=== PATIENT | male | born 1995 | race Caucasian/White ===

== ENCOUNTER → 2017-09-29 10:08 | Outpatient (CLI) | payer OTHER, MEDICAID, SELFPAY ==
[2017-09-29 10:29] LABS: Absolute Lymphocyte Count 1.92 X10^3/ul (0.83-4.51); Absolute Neutrophil Count 4.4 X10^3/uL (2.0-7.7); Basophil# 0.03 X10^3/uL; Basophil% 0.4 % (0-1); Eosinophil# 0.09 X10^3/uL; Eosinophils% 1.3 % (0-5); Hematocrit 45.5 % (40-54); Hemoglobin 15.2 g/dl (13.0-16.5); Lymphocyte # 1.92 X10^3/ul (4.0); Lymphocyte % 26.9 % (19-41); Mean Corp Hgb Conc 33.4 g/gl (32-36); Mean Corpuscular Hgb 30.3 pg (27.0-32.0); Mean Corpuscular Volume 90.8 fL (80-94); Monocyte# 0.71 X10^3/uL; Monocyte% 9.9 % (0-10); Neutrophil # 4.38 X10^3/uL (2.7-7.7); Neutrophil % 61.4 % (47-70); Platelet Count 279 K/mm3 (150-450); RBC Distribution Width CV 12.5 % (11.6-14.6); RBC Distribution Width SD 41.2 fl (35.1-43.9); Red Blood Count 5.01 M/mm3 (4.6-6.2); White Blood Count 7.1 K/mm3 (4.4-11.0)
[2017-09-29 10:31] LABS: POSITIVE COUNT NO; POSITIVE DIFFERENTIAL NO; POSITIVE MORPHOLOGY NO
[2017-09-29 11:03] LABS: ALB/GLOB Ratio 1.2 RATIO (0.9-2.4); AST(SGOT) 21 U/L (15-37); Alanine Aminotransfer ALT/SGPT 44 U/L (16-61); Albumin, Serum 4.3 g/dL (3.2-5.0); Alkaline Phosphatase 59 U/L (45-117); Anion Gap 7 (5-15); BUN 20 mg/dL (7-18); BUN/Creat Ratio 22.4 RATIO (10-20); Calcium,Total 9.1 mg/dL (8.5-10.1); Chloride 106 mmol/L (98-107); Cholesterol 205 mg/dL (200); Creatinine, Serum 0.89 mg/dL (0.70-1.30); EST Glomerular Filtration Rate 114 mL/min (>60); Est Glom Filt Rate - Afr Amer 138 mL/min (>60); Globulin 3.5 g/dL (2.2-4.2); Glucose 89 mg/dL (74-106); High Density Lipoprotein 46 mg/dL; Potassium 4.7 mmol/L (3.5-5.1); Protein, Total 7.8 g/dL (6.4-8.2); Sodium Level 141 mmol/L (136-145); Triglycerides 159 mg/dL; Very Low Density Lipoprotein 32 mg/dL (5-40)
== END ==
PROVIDERS: Family Provider Internal Medicine; PCP Internal Medicine; Visit Provider Internal Medicine
DX: E78.00 Pure hypercholesterolemia, unspecified (principal); R53.82 Chronic fatigue, unspecified
CPT/HCPCS: 36415; 80053; 80061; 85025

== ENCOUNTER 2017-10-12 14:53 | Emergency (ER) | payer OTHER, MEDICAID, SELFPAY ==
[2017-10-12 14:54] VITALS: BP 158/101; PULSE 118; RESP 24; TEMP 37.3; O2SAT 100; BMI 29.8
[2017-10-12 15:03] VITALS: BP 148/98; PULSE 144; RESP 13
--- NOTE | 2017-10-12 15:11 | RAD_ITS ---
STUDY: X-RAY CHEST REASON FOR EXAM: Male, 22 years old. Nausea, vomiting and diarrhea. Chest pain. Fever. Cold like symptoms. TECHNIQUE: PA and lateral views of the chest. COMPARISON: None. FINDINGS: Telemetry wires overlie the chest. The lungs are clear and expanded. There is no demonstrated pleural abnormality. Normal size heart. Normal mediastinum and jamar. Normal visualized pulmonary arteries. Normal visualized aortic arch and descending thoracic aorta. Normal visualized thoracic spine. Normal visualized ribs, clavicles, and shoulders. There is no demonstrated abnormality of the visualized soft tissue structures of the upper abdomen. RAD/Chest PA and Lateral IMPRESSION: Normal x-ray examination of the chest. Electronically Signed: Andrea Wyman DO at 16:14 EDT Tel [phone], Service support ,
[2017-10-12] MEDS: 0.9% Normal Saline 1,000 ML 1000 ML IV (15:20)
[2017-10-12 15:42] LABS: Absolute Lymphocyte Count 1.29 X10^3/ul (0.83-4.51); Absolute Neutrophil Count 6.8 X10^3/uL (2.0-7.7); Basophil# 0.02 X10^3/uL; Basophil% 0.2 % (0-1); Eosinophil# 0.05 X10^3/uL; Eosinophils% 0.6 % (0-5); Hematocrit 45.6 % (40-54); Hemoglobin 15.2 g/dl (13.0-16.5); Lymphocyte # 1.29 X10^3/ul (4.0); Lymphocyte % 14.4 % (19-41); Mean Corp Hgb Conc 33.3 g/gl (32-36); Mean Corpuscular Hgb 29.9 pg (27.0-32.0); Mean Corpuscular Volume 89.8 fL (80-94); Mean Platelet Vol. 9.9 fl (6.2-12.0); Monocyte# 0.78 X10^3/uL; Monocyte% 8.7 % (0-10); Neutrophil # 6.82 X10^3/uL (2.7-7.7); Neutrophil % 75.9 % (47-70); Platelet Count 266 K/mm3 (150-450); RBC Distribution Width CV 12.1 % (11.6-14.6); RBC Distribution Width SD 39.2 fl (35.1-43.9); Red Blood Count 5.08 M/mm3 (4.6-6.2)
[2017-10-12 15:44] LABS: POSITIVE COUNT NO; POSITIVE DIFFERENTIAL NO; POSITIVE MORPHOLOGY NO
--- NOTE | 2017-10-12 15:50 | EKG12_ITS ---
Test Reason : PALPS Blood Pressure : / mmHG Vent. Rate : 131 BPM Atrial Rate : 144 BPM P-R Int : 138 ms QRS Dur : 076 ms QT Int : 292 ms P-R-T Axes : 044 063 051 degrees QTc Int : 431 ms Sinus tachycardia Otherwise normal ECG Confirmed by INDIO DUARTE, SAVAGE ([id number]), general expeditor MYRON SWENSON ([id number]) on 10/14/2017 10:08:54 AM Referred By: KARLA/FELICE Confirmed By:SAVAGE BORJAS MD
[2017-10-12 15:55] LABS: Anion Gap 11 (5-15); BUN 11 mg/dL (7-18); BUN/Creat Ratio 11.6 RATIO (10-20); Calcium,Total 9.5 mg/dL (8.5-10.1); Chloride 103 mmol/L (98-107); Creatinine, Serum 0.95 mg/dL (0.70-1.30); EST Glomerular Filtration Rate 106 mL/min (>60); Est Glom Filt Rate - Afr Amer 129 mL/min (>60); Glucose 89 mg/dL (74-106); Potassium 3.9 mmol/L (3.5-5.1); Sodium Level 143 mmol/L (136-145)
--- NOTE | 2017-10-12 15:55 | NURSING ---
NO OLD EKGS
--- NOTE | 2017-10-12 16:26 | ED.DCSUM_ITS ---
- ER Visit Summary Date of Service: 10/12/17 Chief Complaint: Nausea, diarrhea, sore throat History of Present Illness: The patient is a 22 M who is had the above symptoms for the past 3 days. He states he is felt weak. He also comments of a sore throat. He felt sweaty and shaky yesterday. Is also had multiple episodes of diarrhea. Denies any abdominal pain. He states that he did not drink a lot of water over the past couple of days. Physical Examination: Vital signs reviewed. HEENT exam shows tonsillar swelling with exudates bilaterally. Heart is tachycardic and regular rhythm without murmurs. Lungs are clear to auscultation. Abdomen is soft and nontender. Extremities reveal no edema. Skin exam normal. Neurologic exam normal. Test Results: EKG is sinus rhythm with rate of 131. No ST changes. Labs are normal chest x-ray unremarkable Emergency Department Course and Treatment: Patient was given IV fluids and feels much better. His heart rate is down to about 100. He likely has strep pharyngitis. He will be treated with penicillin at home. He will follow-up with his PCP Treatment Plan: [] Disposition: Discharge Impression: Pharyngitis This note was generated with [employer] dictation software. It may contain incorrect words, spelling, and punctuation that were not noted in review of the chart prior to signing ED Disposition - Plan for ED Patient: Chief Complaint: General Illness Referrals: Hawa Vaughn MD [Primary Care Provider] -
--- NOTE | 2017-10-12 16:26 | ED.DEP ---
ED Disposition - Plan for ED Patient: Disposition: Home or Assisted Living Chief Complaint: General Illness Instructions: ED Strep Pharyngitis Poss Prescriptions: Penicillin V Potassium 500 mg PO BID #14 tab Referrals: Hawa Vaughn MD [Primary Care Provider] -
== END 2017-10-12 16:41 | disposition home or self-care (01) ==
PROVIDERS: Emergency Provider Emergency Medicine; Family Provider Internal Medicine; PCP Internal Medicine
DX: J02.9 Acute pharyngitis, unspecified (principal); R00.0 Tachycardia, unspecified; F41.9 Anxiety disorder, unspecified; F90.9 Attention-deficit hyperactivity disorder, unspecified type; M54.9 Dorsalgia, unspecified; G89.29 Other chronic pain; Z79.891 Long term (current) use of opiate analgesic; Z79.899 Other long term (current) drug therapy
CPT/HCPCS: 71046; 80048; 85025; 93005; 99284; J7030

== ENCOUNTER → 2017-10-21 11:04 | Outpatient (CLI) | payer OTHER, MEDICAID, SELFPAY | PROVIDERS: Family Provider Internal Medicine; PCP Internal Medicine; Visit Provider Otolaryngology | DX: H93.12 Tinnitus, left ear (principal) | CPT/HCPCS: 70553; A9585 ==

== ENCOUNTER 2018-02-02 13:00 | Outpatient (RCR) | payer OTHER, MEDICAID, SELFPAY ==
--- NOTE | 2017-11-17 09:35 | HP.PTEVAL_ITS ---
Patient's Visit Information HECTOR VELIZ is a 22 year old M referred to Physical Therapy by Hawa Vaughn MD with a diagnosis of LBP L sciatica. Date of Evaluation: 11/17/17 Physical Therapist: Les Rowell PT, - Visit Plan Frequency: 1-2x /Week Duration: 2 Weeks Plan: Postural edu, REIL, core stab ex's, LE stretching, bike, and HEP - Subjective Subjective: Pt reports he has had R anterior thigh pain for 2 1/2 years. Pt reports he has had PT 8 times already with no relief. Pt reports the pain is worst when he sits awkardly in a chair for a while. The pain is described as sharp and jabbing. Pt reports he had an MRI a year ago and reports they said it was coming from his L/S. Pt does note he has never had LBP. Pt reports icing, MH , stretching, and icy hot will sometimes help to alleviate his pain. When the pain is bad, he has to take meds, but he notes he doesnt like to do that because it messes with his cognitive function. No sleep difficulty secondary to pain. 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 0/10 at rest, 8/10 at worst ( getting out of his tub) - Pain L ant thigh pain Pain Intensity (Out of 10): 0 Pain Intensity Range: 8 - Objective Neuro: B LE sensation is WNL to light touch. B achilles reflex= 2/3. MMT: L hip flex and knee ext= 4+/5. All other L LE 5/5. R hip 5/5, R knee 4-/5 and painful secondary to a sprained knee which occurred 1 week ago. L/S ROM: Pt is minimally limited with L/S ext. All other movements are WNL. Repeated movements : RFIS 10x3 provokes L LE sx's near his L lat knee. Special tests: Pos 90/90 test and piriformus test - Goals Goal 1:: I with HEP in 2-3 visits Goal Time Frame: 2-4 Weeks - Rehabilitation Potential Physical Therapy Diagnosis: Pt has LBP, L sciatica, and limited L/S ROM secondary to L/S disc derangement. Rehabilitation Potential: Good - Anticipated Interventions Patient/Client Instruction: Educate patient on: Condition, Plan of Care For the Purpose of:: To improve self management Therapeutic Exercise to Include: Strength training, Postural training, Flexibilty training, Dynamic Lumbar Stabilization For the Purpose of:: To decrease pain, To increase ROM, To improve muscle performance and motor function Cryotherapy (ice pack, ice massage): Yes Thermo therapy (hot pack): Yes For the Purpose of:: To decrease pain Thank you for the opportunity to evaluate your patient. For Medicare and Medicare HMO plans, please review the plan of care and approve it. It will need to be FAXED BACK to us at [phone] for Medicare purposes. Please let me know if there are questions or concerns regarding this plan of care. Physician Signature: Date:
--- NOTE | 2018-02-02 13:58 | HP.PTDCSUM ---
HP - PT D/C Summary It has been my pleasure to treat HECTOR VELIZ under orders from Hawa Vaughn MD, for the diagnosis of LBP L sciatica for a total of 6 visit(s). Discharge Date: 02/02/18 Please see the following information for a summary of their discharge status. - Subjective Subjective: Doing good no pain ..exercises help pain go away. No symptonms for a week - Pain L ant thigh pain Pain Intensity (Out of 10): 0 - Overall Improvement % Improvement: 80 - Objective Objective/Function: POSTURE: slouched. GAIT: normal karel. LUMBAR ROM: flexion min/mod loss,extension min loss. FLEXABLITY: HAMS mod tight. -SLR - Goals Goal 1:: I with HEP in 2-3 visits Goal Progress: Goal Met - Plan Plan: D/C TO HEP - D/C Information Discharge Comments: HEP If there are questions or concerns regarding this patient's physical therapy, please feel free to call me at [phone]. Thank you for the referral of this patient. Sincerely, Bruce Pope, PT,
== END 2018-02-02 19:00 | disposition home or self-care (01) ==
LOC: PT 13:00
PROVIDERS: Family Provider Internal Medicine; PCP Internal Medicine; Visit Provider Internal Medicine
DX: M54.42 Lumbago with sciatica, left side (principal)
CPT/HCPCS: 97110; 97162; 97530

== ENCOUNTER 2018-02-26 16:01 | Emergency (ER) | payer OTHER, MEDICARE, MEDICAID, SELFPAY ==
[2018-02-16 11:19] VITALS: BMI 27.3
[2018-02-26 16:02] VITALS: BP 158/84; PULSE 107; RESP 18; TEMP 36.2; O2SAT 100; BMI 27.4
[2018-02-26 16:14] VITALS: PULSE 114; RESP 16; O2SAT 99
--- NOTE | 2018-02-26 16:16 | EKG12_ITS ---
Test Reason : CHEST PAIN Blood Pressure : / mmHG Vent. Rate : 126 BPM Atrial Rate : 126 BPM P-R Int : 162 ms QRS Dur : 080 ms QT Int : 314 ms P-R-T Axes : 070 078 058 degrees QTc Int : 454 ms Sinus tachycardia Otherwise normal ECG Confirmed by MERCEDES SHORT ([id number]), deputy editor in chief MYRON SWENSON ([id number]) on 03/01/2018 1:00:13 PM Referred By: KATEY Confirmed By:MERCEDES SHORT
--- NOTE | 2018-02-26 16:20 | RAD_ITS ---
STUDY: X-RAY CHEST REASON FOR EXAM: Male, 22 years old. Chest pains. TECHNIQUE: Single frontal view of the chest. COMPARISON: 10/12/2017. FINDINGS: The lungs are clear and expanded. There is no demonstrated pleural abnormality. Normal size heart. Normal mediastinum and jamar. Normal visualized pulmonary arteries. Normal visualized aortic arch and descending thoracic aorta. Normal visualized thoracic spine. Normal visualized ribs, clavicles, and shoulders. There is no demonstrated abnormality of the visualized soft tissue structures of the upper abdomen. RAD/Chest 1 View (Portable) IMPRESSION: Normal x-ray examination of the chest. Electronically Signed: Wilmar Moura MD at 16:52 EST , Service support ,
--- NOTE | 2018-02-26 16:21 | ED.DCSUM_ITS ---
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 He had mild shortness of breath and mild nausea. He tried to rest the pain has persisted. Past history significant for chronic back pain, anxiety, Tourette's, OCD, high cholesterol. He does have a history of tachycardia and states his normal heart rate is around 115. Physical Examination: Blood pressure is 158/84, temperature 97.1, heart rate 107, respiratory rate 18, pulse ox 100% on room air. Head neck examination unremarkable. Heart is tachycardic and regular. Lungs sounds are clear. Breath sounds are present bilaterally. There is mild chest wall tenderness just to the right of the sternum that re-creates his pain. Abdomen is soft and nontender. Peripheral pulses are noted and equal throughout. Test Results: EKG is sinus tach at 126 with no acute ischemia. Chest x-ray unremarkable. CBC and chemistry studies normal. Troponin negative. D-dimer 0.33. Emergency Department Course and Treatment: Patient was given morphine, Zofran, and IV fluids. On repeat evaluation he is significantly improved and denies pain at present time. Heart rate is 93. Test results are discussed with patient and family at bedside. He will continue to monitor his symptoms. Treatment Plan: [] Disposition: Discharge Impression: Atypical chest pain, resolved This note was generated with [employer] dictation software. It may contain incorrect words, spelling, and punctuation that were not noted in review of the chart prior to signing ED Disposition - Plan for ED Patient: Chief Complaint: Chest Pain Referrals: Hawa Vaughn MD [Primary Care Provider] -
[2018-02-26] MEDS: Ondansetron 4 MG/2 ML Vial IV (16:22)
[2018-02-26] MEDS: 0.9% Normal Saline 1,000 ML 150 ML IV (16:22)
[2018-02-26] MEDS: Morphine 4 MG/ML Syringe IV (16:23)
[2018-02-26 16:30] LABS: Absolute Lymphocyte Count 1.75 X10^3/ul (0.83-4.51); Basophil# 0.03 X10^3/uL; Basophil% 0.5 % (0-1); Eosinophil# 0.06 X10^3/uL; Eosinophils% 1.1 % (0-5); Hematocrit 44.4 % (40-54); Hemoglobin 15.4 g/dl (13.0-16.5); Lymphocyte # 1.75 X10^3/ul (4.0); Lymphocyte % 31.5 % (19-41); Mean Corp Hgb Conc 34.7 g/gl (32-36); Mean Corpuscular Hgb 30.5 pg (27.0-32.0); Mean Corpuscular Volume 87.9 fL (80-94); Mean Platelet Vol. 9.5 fl (6.2-12.0); Monocyte# 0.74 X10^3/uL; Monocyte% 13.3 % (0-10); Neutrophil # 2.98 X10^3/uL (2.7-7.7); Neutrophil % 53.6 % (47-70); Platelet Count 243 K/mm3 (150-450); RBC Distribution Width CV 12.1 % (11.6-14.6); RBC Distribution Width SD 38.6 fl (35.1-43.9); Red Blood Count 5.05 M/mm3 (4.6-6.2); White Blood Count 5.6 K/mm3 (4.4-11.0)
[2018-02-26 16:31] LABS: POSITIVE COUNT NO; POSITIVE DIFFERENTIAL NO; POSITIVE MORPHOLOGY NO
[2018-02-26 16:50] LABS: D-Dimer Quantitative (DVT/PE) 0.33 FEU/ug/m (0.27-0.49)
[2018-02-26 16:55] LABS: Anion Gap 11 (5-15); BUN 15 mg/dL (7-18); Calcium,Total 9.6 mg/dL (8.5-10.1); Chloride 101 mmol/L (98-107); EST Glomerular Filtration Rate 100 mL/min (>60); Est Glom Filt Rate - Afr Amer 121 mL/min (>60); Estimated Creatinine Clearance 124.45 ml/min; Glucose 73 mg/dL (74-106); Potassium 3.5 mmol/L (3.5-5.1); Sodium Level 138 mmol/L (136-145)
--- NOTE | 2018-02-26 17:21 | ED.DEP ---
ED Disposition - Plan for ED Patient: Disposition: Home or Assisted Living Chief Complaint: Chest Pain Instructions: ED Chest Pain Atypical Unkn Cause Referrals: Hawa Vaughn MD [Primary Care Provider] - As Needed
[2018-02-26 17:35] VITALS: BP 145/86; PULSE 89; RESP 16; O2SAT 96
== END 2018-02-26 17:36 | disposition home or self-care (01) ==
PROVIDERS: Emergency Provider Emergency Medicine; Family Provider Internal Medicine; PCP Internal Medicine
DX: R07.89 Other chest pain (principal)
CPT/HCPCS: 71045; 80048; 84484; 85025; 85379; 93005; 96361; 96374; 96375; 99284; J7030; A4216; J2405

== ENCOUNTER 2019-01-19 18:20 | Emergency (ER) | payer MEDICARE, MEDICAID, OTHER, SELFPAY ==
[2018-11-16 08:58] VITALS: BMI 28.8
[2019-01-19 18:21] VITALS: BP 145/78; PULSE 104; RESP 16; TEMP 37.4; O2SAT 99; BMI 29.5
[2019-01-19] MEDS: LORazepam 1 MG Tablet PO (20:10)
--- NOTE | 2019-01-19 20:30 | CM.ED ---
SOCIAL WORK INFORMANT: NURSING AND DR. MENDEZ REASON FOR REFERRAL: DEPRESSION/CHANGE IN MEDICATIONS CHIEF COMPLIANT: PATIENT REPORTS INCREASING DEPRESSION SINCE PSYCHIATRIST CHANGED MEDICATIONS. PATIENT DENIES ANY SUICIDAL IDEATION. LIVING ARRANGEMENTS: PATIENT REPORTS IS LIVING ON CAMPUS AT [facility]. SUPPORT/RESOURCES: PATIENT REPORTS LIMITED SUPPORT NO ONE UNDERSTANDS. 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 MENTAL HEALTH TREATMENT/HISTORY: PATIENT REPORTS HISTORY OF BIPOLAR DISORDER, OCD, ADHD, AND ANXIETY. PATIENT STATES FOLLOWS WITH PSYCHIATRY AND PREVI[facility]Y [facility]. PATIENT IS PRESCRIBED MEDICATION AND RECENTLY HAD A CHANGE IN MEDICATIONS AND WAS ADVISED NOT TO USE KRATOM AND CBD OIL BY PSYCHIATRIST D/T NOT KNOWING INTERACTIONS WITH PRESCRIBED MEDICATIONS. PATIENT STATES WAS BUYING KRATOM ON [employer]. SUBSTANCE ABUSE HX: PATIENT DENIES ANY HISTORY OF SUBSTANCE ABUSE. PATIENT STATES MY PSYCHIATRIST TOOK AWAY MY COPING SKILL OF DRINKING. PATIENT ADMITS ABOUT 2X A WEEK WOULD DRINK 1-8 BEERS. ASSESSMENT: MET WITH PATIENT IN ROOM. INTRODUCED ROLE AND REASON FOR REFERRAL. PATIENT STATES I JUST DON'T KNOW HOW TO COPE WITH THIS. PATIENT REPORTS IS HOPING NEW DOSING OF ADDERALL THAT HE IS TO START TOMORROW WILL HELP. PATIENT STATES TODAY WAS JUST BAD. PATIENT STATES WHEN HE WOULD TAKE KRATOM IT WOULD HELP WITH DEPRESSION WITHIN 15 MINUTES. PATIENT VOICES UNDERSTANDING OF WHY PSYCHIATRIST RECOMMENDED PATIENT TO STOP TAKING KRATOM. PATIENT WORRIED ABOUT RETURNING TO SCHOOL HE HAS MISSED A DAY OF CLASSES. EMOTIONAL SUPPORT AND ENCOURAGEMENT PROVIDED. DISCUSSED HEALTHY COPING SKILLS AND FOLLOW UP. PATIENT STATES WILL CALL THE CRISIS LINE IF NEEDED AND PLANS TO START COUNSELING SOON. PATIENT WAS GIVEN DOSE OF ATIVAN AND WILL HAVE TRANSPORT HOME BY HIS MOTHER. COLLABORATION WITH DR. MENDEZ. PATIENT PROVIDED WITH RESOURCES AND WILL RETURN HOME BEFORE. Jada AMEZQUITA, PAINT ROLLER COVERMAKER, SCHOOL CROSSING GUARD.
--- NOTE | 2019-01-19 21:00 | ED.DCSUM_ITS ---
- ER Visit Summary Date of Service: 01/19/19 Chief Complaint: [Depression] History of Present Illness: The patient is a 23 M [presents to the emergency department with history of longstanding depression and anxiety. Patient also has been diagnosed with bipolar disorder. Patient has history of ADHD as well as OCD. Patient states that he has had some medication adjustments made by his psychiatrist recently and he was started on lithium yesterday. Patient also supposed to increase his Adderall tomorrow. Today he felt very depressed and became tearful in class. He broke his pen and with a sharp edge of the pen tip started to abrade the back of his left hand. Patient is not having any thoughts of suicide. Patient states that in the past when he is felt this way he would take besl-abw-rcoaldk kratom which typically aborted his symptoms. Patient was told by his psychiatrist not to take this medication as she was unsure how it would interact with his lithium. Patient is not homicidal. He denies any auditory or visual hallucinations.] Physical Examination: HEENT-PERRLA, EOMI. Cranial nerves II through XII grossly intact. TMs clear. Mucous membranes moist. No adenopathy. Cardiovascular-regular rate and rhythm without murmur or ectopy Lungs-clear to auscultation, chest wall stable without crepitus or subcu emphysema Abdomen-normoactive bowel sounds, soft, nontender, no rebound or rigidity, no peritoneal signs. Extremities-intact ?4, normal range of motion, normal pulses, atraumatic [] Test Results: [None indicated] Emergency Department Course and Treatment: [Patient was given a dose of Ativan 1 mg p.o. and I had the social and political studies professor speak with the patient. At this point he is not suicidal and does not require inpatient admission. After treatment with the Ativan his symptoms essentially resolved and he is feeling back to his baseline.] Treatment Plan: [Patient has Xanax at home as needed for anxiety is to continue with that. Patient is to contact his psychiatrist for further instructions on his medications.] Disposition: [Discharged home in stable condition.] Impression: [Depression Anxiety] This note was generated with [employer] software. It may contain incorrect words, spelling, and punctuation that were not noted in review of the chart prior to signing ED Disposition - Plan for ED Patient: Referrals: Hawa Vaughn MD [Primary Care Provider] -
--- NOTE | 2019-01-19 21:03 | ED.DEP ---
ED Disposition - Plan for ED Patient: Instructions: Depression, Panic Attack Referrals: Hawa Vaughn MD [Primary Care Provider] - 3-5 Days Additional Instructions: see your psychiatrist in 3-5 days
[2019-01-19 21:10] VITALS: RESP 18
== END 2019-01-19 21:11 | disposition home or self-care (01) ==
LOC: ED 20:21
PROVIDERS: Emergency Provider Emergency Medicine; Family Provider Internal Medicine; PCP Internal Medicine
DX: F32.9 Major depressive disorder, single episode, unspecified (principal); F41.9 Anxiety disorder, unspecified; F90.9 Attention-deficit hyperactivity disorder, unspecified type; F42.9 Obsessive-compulsive disorder, unspecified; Z79.899 Other long term (current) drug therapy
CPT/HCPCS: 99283

== ENCOUNTER → 2019-01-21 | Outpatient (CLI) | payer MEDICARE, OTHER, MEDICAID, SELFPAY ==
[2019-01-19 18:21] VITALS: BMI 29.5
--- NOTE | 2019-01-21 12:28 | EKG12_ITS ---
Test Reason : MEDICATION Blood Pressure : / mmHG Vent. Rate : 094 BPM Atrial Rate : 094 BPM P-R Int : 164 ms QRS Dur : 080 ms QT Int : 330 ms P-R-T Axes : 056 072 045 degrees QTc Int : 412 ms Normal sinus rhythm with sinus arrhythmia Normal ECG Confirmed by PANTERA DUARTE, MODESTO ([id number]), editor in chief newspaper MYRON SWENSON ([id number]) on 01/25/2019 11:32:42 AM Referred By: Hawa Vaughn Confirmed By:MODESTO MOTT MD
[2019-01-21 13:51] LABS: Anion Gap 9 (5-15); BUN 16 mg/dL (7-18); BUN/Creat Ratio 18.1 RATIO (10-20); Calcium,Total 9.2 mg/dL (8.5-10.1); Chloride 105 mmol/L (98-107); Cholesterol 199 mg/dL (200); Creatinine, Serum 0.88 mg/dL (0.70-1.30); EST Glomerular Filtration Rate 114 mL/min (>60); Est Glom Filt Rate - Afr Amer 138 mL/min (>60); Glucose 101 mg/dL (74-106); High Density Lipoprotein 44 mg/dL; Sodium Level 141 mmol/L (136-145); T4 Free Direct 1.17 ng/dL (0.76-1.46); Thyroid Stim Hormone (TSH) 1.09 uIU/mL (0.358-3.74); Triglycerides 171 mg/dL; Very Low Density Lipoprotein 34 mg/dL (5-40)
== END | disposition home or self-care (01) ==
PROVIDERS: Family Provider Internal Medicine; PCP Internal Medicine; Referring Provider Internal Medicine; Visit Provider Internal Medicine
DX: I10 Essential (primary) hypertension (principal); R00.0 Tachycardia, unspecified; Z13.29 Encounter for screening for other suspected endocrine disorder; Z51.81 Encounter for therapeutic drug level monitoring
CPT/HCPCS: 80048; 80061; 84439; 84443; 93005

== ENCOUNTER 2019-02-02 18:54 | Emergency (ER) | payer MEDICARE, OTHER, MEDICAID, SELFPAY ==
[2019-02-02 18:56] VITALS: BP 157/84; PULSE 120; RESP 18; TEMP 37.3; O2SAT 99; BMI 29.2
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
[2019-02-02 19:44] VITALS: PULSE 99; RESP 18; O2SAT 99
--- NOTE | 2019-02-02 19:46 | ED.RN ---
THIS NURSE REVIEWED D/C INSTRUCTIONS WITH PT. PT VERBALIZED UNDERSTANDING OF INSTRUCTIONS. PT DENIES FURTHER NEEDS OR QUESTIONS AT THIS TIME.
== END 2019-02-02 19:46 | disposition home or self-care (01) ==
PROVIDERS: Emergency Provider Emergency Medicine; Family Provider Internal Medicine; PCP Internal Medicine
DX: M54.5 Low back pain (principal); G89.29 Other chronic pain; F41.9 Anxiety disorder, unspecified; F31.9 Bipolar disorder, unspecified; F90.9 Attention-deficit hyperactivity disorder, unspecified type; F42.9 Obsessive-compulsive disorder, unspecified; F95.2 Tourette's disorder; Z79.899 Other long term (current) drug therapy
CPT/HCPCS: 99282

== ENCOUNTER → 2019-02-10 16:41 | Outpatient (CLI) | payer MEDICARE, OTHER, MEDICAID, SELFPAY ==
[2019-02-04 10:17] VITALS: BMI 29.2
[2019-02-10 17:39] LABS: Absolute Lymphocyte Count 2.42 X10^3/uL (0.83-4.51); Absolute Neutrophil Count 4.8 X10^3/uL (2.0-7.7); Basophil# 0.04 X10^3/uL; Basophil% 0.5 % (0-1); Eosinophil# 0.09 X10^3/uL; Eosinophils% 1.2 % (0-5); Hematocrit 45.3 % (40-54); Hemoglobin 15.2 g/dL (13.0-16.5); Lymphocyte # 2.42 X10^3/ul (4.0); Mean Corp Hgb Conc 33.6 g/dL (32-36); Mean Corpuscular Hgb 30.4 pg (27.0-32.0); Mean Corpuscular Volume 90.6 fL (80-94); Mean Platelet Vol. 9.6 fl (6.2-12.0); Monocyte# 0.45 X10^3/uL; Monocyte% 5.8 % (0-10); NRBC Flagged by Analyzer 0 % (0-5); Neutrophil # 4.78 X10^3/uL (2.7-7.7); Neutrophil % 61.2 % (47-70); Platelet Count 338 K/mm3 (150-450); RBC Distribution Width CV 11.6 % (11.6-14.6); RBC Distribution Width SD 38.1 fl (35.1-43.9); White Blood Count 7.8 K/mm3 (4.4-11.0)
[2019-02-10 18:15] LABS: ALB/GLOB Ratio 1.4 RATIO (0.9-2.4); AST(SGOT) 22 U/L (15-37); Alanine Aminotransfer ALT/SGPT 42 U/L (16-61); Albumin, Serum 4.7 g/dL (3.2-5.0); Alkaline Phosphatase 61 U/L (45-117); Anion Gap 7 (5-15); BUN 17 mg/dL (7-18); Calcium,Total 9.3 mg/dL (8.5-10.1); Chloride 105 mmol/L (98-107); EST Glomerular Filtration Rate 99 mL/min (>60); Est Glom Filt Rate - Afr Amer 120 mL/min (>60); Globulin 3.3 g/dL (2.2-4.2); Glucose 102 mg/dL (74-106); Potassium 3.5 mmol/L (3.5-5.1); Sodium Level 141 mmol/L (136-145); Thyroid Stim Hormone (TSH) 2.04 uIU/mL (0.358-3.74)
== END ==
PROVIDERS: Family Provider Internal Medicine; PCP Internal Medicine
DX: Z51.81 Encounter for therapeutic drug level monitoring (principal); Z79.899 Other long term (current) drug therapy
CPT/HCPCS: 36415; 80053; 80178; 84443; 85025

== ENCOUNTER 2019-05-02 14:12 | Emergency (ER) | payer MEDICARE, OTHER, MEDICAID, SELFPAY ==
[2019-04-25 11:04] VITALS: BMI 29.2
[2019-05-02] VITALS (7 sets, daily range): BP systolic 143–152; BP diastolic 77–82; PULSE 93–116; RESP 16–18; TEMP 36.5; O2SAT 98–100; BMI 29.5
[2019-05-02 14:42] LABS: Absolute Lymphocyte Count 1.96 X10^3/uL (0.83-4.51); Absolute Neutrophil Count 5.6 X10^3/uL (2.0-7.7); Basophil# 0.04 X10^3/uL; Basophil% 0.5 % (0-1); Eosinophil# 0.09 X10^3/uL; Eosinophils% 1.1 % (0-5); Hematocrit 41.2 % (40-54); Hemoglobin 13.7 g/dL (13.0-16.5); Lymphocyte # 1.96 X10^3/ul (4.0); Lymphocyte % 23.7 % (19-41); Mean Corp Hgb Conc 33.3 g/dL (32-36); Mean Corpuscular Volume 90.4 fL (80-94); Mean Platelet Vol. 9.5 fl (6.2-12.0); Monocyte# 0.57 X10^3/uL; Monocyte% 6.9 % (0-10); NRBC Flagged by Analyzer 0 % (0-5); Neutrophil # 5.58 X10^3/uL (2.7-7.7); Neutrophil % 67.4 % (47-70); Platelet Count 298 K/mm3 (150-450); RBC Distribution Width CV 11.9 % (11.6-14.6); Red Blood Count 4.56 M/mm3 (4.6-6.2); White Blood Count 8.3 K/mm3 (4.4-11.0)
[2019-05-02 14:54] LABS: Anion Gap 6 (5-15); BUN 18 mg/dL (7-18); BUN/Creat Ratio 20.3 RATIO (10-20); Calcium,Total 9.2 mg/dL (8.5-10.1); Chloride 108 mmol/L (98-107); Creatinine, Serum 0.88 mg/dL (0.70-1.30); EST Glomerular Filtration Rate 114 mL/min (>60); Est Glom Filt Rate - Afr Amer 137 mL/min (>60); Estimated Creatinine Clearance 140.24 ml/min; Glucose 113 mg/dL (74-106); Sodium Level 141 mmol/L (136-145)
--- NOTE | 2019-05-02 15:07 | ED.RN ---
PT UNDER SUICIDAL PRECAUTIONS, SITTER WITH PT AT ALL TIMES. STATES HE IS CONCERNED HIS ANXIETY WILL ESCALATE UNTIL HE OVERDOSES ON MEDS, WHETHER ACCIDENTLY OR INTENTIONAL.
[2019-05-02 15:09] LABS: Alcohol, Blood (Medical)-Serum < 3.0 mg/dL
[2019-05-02 15:11] LABS: Amphetamine Urine VISTA POSITIVE (<1000 ng/mL); Barbiturate Urine VISTA NEGATIVE (< 200 ng/mL); Benzodiazepine Urine VISTA POSITIVE (< 200 ng/mL); Cocaine Urine VISTA NEGATIVE (< 300 ng/mL); Ecstacy Urine VISTA NEGATIVE (< 500 ng/mL); Methadone Urine VISTA NEGATIVE (< 300 ng/mL); PCP Urine VISTA NEGATIVE (< 25 ng/mL); THC Urine VISTA NEGATIVE (< 50 ng/mL); Vista UDS pH Range 7
--- NOTE | 2019-05-02 16:13 | ED.DCSUM_ITS ---
- ER Visit Summary Date of Service: 05/02/19 Chief Complaint: Depression and suicidal ideation History of Present Illness: The patient is a 23 M who presents with suicidal ideations that began yesterday. Patient states he got into an argument with his parents yesterday. Patient states he took some Kratom last night. Patient states he felt very anxious after this. Patient states he took some Ativan last night and was able to sleep. Patient states he woke up today feeling more anxious. Patient states he took more Ativan today. Patient states he also took more Kratom today. Patient states that he feels that if he was not brought in today he would have overdosed on his medications. Patient states he does not intend to overdose but he felt it may have led to an accidental overdose while he was trying to self medicate. Physical Examination: Vital signs are stable except for a tachycardia of 116. Patient is afebrile. Patient is in no acute distress. Oral mucosa is pink and moist. Neck is supple. Trachea is midline. There is no JVD noted. Heart was regular rate and rhythm. Lungs are clear and equal bilaterally. Abdomen is soft. Bowel sounds are normal. There is no tenderness. There is no rebound or guarding noted. Skin is warm dry. Cranial nerves II through XII are intact. There are no focal motor or sensory deficits noted. Extremities are intact. There is no calf tenderness or edema. Patient has an anxious mood and nervous affect. Patient denies any suicidal plan. Test Results: CBC and basic metabolic profile were within normal limits. Urine tox urine was positive for amphetamines and benzodiazepines. Serum alcohol level was normal. Mother requested a TSH be drawn. This was obtained and was normal at 1.03. [place] level was also obtained and was less than 0.20. Emergency Department Course and Treatment: welfare eligibility worker was in to evaluate the patient. She felt that the patient would benefit from inpatient treatment. Patient was pink slipped. Patient will be transferred to a psychiatric facility. Transfer arrangements were made. Patient understands and is agreeable with the plan. All questions were answered. Disposition: Transfer to psychiatric facility Impression: Acute clarisa This note was generated with [employer] dictation software. It may contain incorrect words, spelling, and punctuation that were not noted in review of the chart prior to signing ED Disposition - Plan for ED Patient: Disposition: Psychiatric Hospital or Unit Diagnosis: Clarisa Referrals: Hawa Vaughn MD [Primary Care Provider] -
[2019-05-02] MEDS: LORazepam 1 MG Tablet PO (16:54)
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
[2019-05-02 19:21] LABS: Lithium < 0.20 mmol/L (0.60-1.20)
[2019-05-02 19:23] LABS: Thyroid Stim Hormone (TSH) 1.03 uIU/mL (0.358-3.74)
--- NOTE | 2019-05-02 19:46 | CM.ED ---
Social Work Telephone call to [facility]. Confirming there are open beds. Clinical information faxed. Pending review. Yanick ARMIJO, BRITTNEY
[2019-05-02] MEDS: Meclizine HCl 25 MG Tablet PO (19:50)
--- NOTE | 2019-05-02 20:23 | ED.RN ---
patient took home dose of 20 mg addrell at this time. [facility] dose not carry medication
--- NOTE | 2019-05-02 21:07 | CM.ED ---
Social Work Telephone call from Jose Rafael Kamara. Patient has been accepted. Accepting: Hamida Oates N.P. Patient accepted to [address] [place] [address]. Nurse to nurse report: [phone]. Updated patient and patient family (patient agreeable to family being updated) and medical team. [place] slip faxed Yanick Keith MSW, BRITTNEY
== END 2019-05-02 21:38 ==
PROVIDERS: Emergency Provider Emergency Medicine; PCP Internal Medicine
DX: F30.9 Manic episode, unspecified (principal); F41.9 Anxiety disorder, unspecified; F90.9 Attention-deficit hyperactivity disorder, unspecified type; I10 Essential (primary) hypertension; Z79.899 Other long term (current) drug therapy
CPT/HCPCS: 80048; 80178; 80307; 80320; 84443; 85025; 99284; G0480

== ENCOUNTER 2019-05-10 07:41 | Emergency (ER) | payer MEDICARE, OTHER, MEDICAID, SELFPAY ==
[2019-05-02 14:14] VITALS: BMI 29.5
[2019-05-10 07:42] VITALS: BP 147/81; PULSE 124; RESP 16; TEMP 36.4; O2SAT 100; BMI 31.1
--- NOTE | 2019-05-10 08:00 | ED.DCSUM_ITS ---
History of Present Illness Chief Complaint: Nausea/Vomiting Detail of Chief Complaint: And generalized abdominal pain Informant: Patient Onset: Today Context: Sudden Onset Timing: Continuous, Waxes and wanes Quality: Pain and feeling sick to his stomach Location: Generalized Current Severity: Mild Maximum Severity: Moderate Worsened by: Vomiting Relieved by: Nothing Associated Symptoms: One formed bowel movement at onset Narrative: Patient is a 23-year-old college student who presents with abrupt onset of abdominal pain with nausea vomiting and one formed bowel movement at 0100. He reports she is vomited 3 times since onset of illness. He denies blood or mucus in stool. He denies black or maroon stool. He denies blood or coffee grounds in his emesis. There is no history of cyclic vomiting. There is no history of ill contacts. He did not eat any thing that tasted unusual. He does not have a roommate. He reports subjective fever. He denies chills. He complains of head discomfort vertex. He denies double vision, blurred vision loss of vision. Denies decreased hearing or ringing in his ears. Does complain of thirst and dry mouth. Denies sore throat. Denies cardiac respiratory symptoms. Nothing makes the pain better or worse. He denies myalgias arthralgias. He denies night sweats. He denies urinary symptoms. Prior similar symptoms: Yes - Food poisoning Recent Illness/Hospitalization: No - Past Medical History (1) Hypertension Status: Chronic (2) Hyperlipidemia Status: Chronic (3) Chronic low back pain with left-sided sciatica Status: Chronic (4) ADHD (attention deficit hyperactivity disorder) Status: Chronic (5) Tourette's Status: Chronic (6) OCD (obsessive compulsive disorder) Status: Chronic (7) Anxiety Status: Chronic Past Medical History - Allergies and Home Meds Allergies/Adverse Reactions: Allergies aripiprazole [From Abilify] Allergy (Severe, Verified 05/10/19 07:41) Loss of reality benztropine [From Cogentin] Allergy (Severe, Verified 05/10/19 07:41) unknown methylprednisolone Allergy (Verified 05/10/19 07:41) Other RESPIDON Allergy (Severe, Uncoded 05/10/19 07:41) Chest pain Primary Care Physician: Hawa Vaughn MD [Primary Care Provider] - Prior records reviewed: Yes Lives: With Family Smoking Status: Never smoker Alcohol: None Drugs: None Review of Systems General: Reports: Fever, Malaise, Subjective. Denies: Chills, Sweats, Weight loss Eyes: Denies: Visual changes - bilaterally, Blurred Vision - bilaterally, Diplopia ENT: Denies: Bilateral ear pain, Rhinorrhea, Sore throat Cardiovascular: Denies: Chest pain, Palpitations Respiratory: Denies: Dyspnea, Dyspnea on exertion Gastrointestinal: Reports: Abdominal pain, Nausea, Vomiting. Denies: Diarrhea, Constipation, Melena, Hematochezia Genitourinary: Denies: Dysuria, Hematuria, Frequency Musculoskeletal: Denies: Myalgias, Arthralgias, Neck pain, Back pain, Swelling, Extremity Pain, -, - Skin: Denies: Rash, Wounds Neurological: Reports: Headache. Denies: Weakness, Parasthesia, Numbness, -, - Endocrine: Denies: Polyuria, Polydipsia Hematologic: Denies: Easy bruising, Easy bleeding Physical Exam Vital Signs/Narrative: Vital Signs Temp Pulse Resp BP Pulse Ox 05/10/19 07:42 97.5 F L 124 H 16 147/81 H 100 Inital Vital Signs reviewed: Yes General: Well nourished, Well developed, No Acute Distress Head: Normocephalic, Atraumatic Eyes: Perrl, EOMI. Negative for: Pale conjunctiva, Scleral icterus ENT: No rhinorrhea, TM's clear, Dry mucous membranes Neck: Supple, Nontender, No lymphadenopathy, No JVD Cardiovascular: Regular rate, No murmurs, Normal S1, Normal S2, Tachycardia Respiratory: No distress, CTA bilaterally, Chest nontender Abdomen: Soft, Nondistended, No masses, Tender, Hypoactive bowel sounds. Negative for: Nontender, Normal bowel sounds, Guarding, Rebound tenderness, Hyperactive bowel sounds, Hepatomegaly, Splenomegaly, Mass Rectal: Deferred Back: Nontender, Normal Inspection. Negative for: CVA tenderness Extremities: Nontender, No edema Skin: Normal color, No rash, No Trauma. Negative for: Cyanosis, Diaphoresis, Jaundice Neurological: Alert, Oriented x3, Cranial nerves II-XII grossly intact, Normal Strength, Normal Sensation Psychological: Depressed Diagnostic/Tx/Re-eval Laboratory Results 05/10/19 08:07 Sodium 140 Potassium 3.9 Chloride 104 Carbon Dioxide 27.0 Anion Gap 9 BUN 24 H Creatinine 0.89 Estim Creat Clear Calc 138.66 Est GFR (MDRD) Af Amer 137 Est GFR (MDRD) Non-Af 113 BUN/Creatinine Ratio 27.0 H Glucose 110 H Calcium 8.8 Basic metabolic panel is remarkable for an elevated BUN to creatinine ratio consistent with prerenal azotemia/dehydration. - Medical Decision Making With history of hypertension significant amount of vomiting and appearing dehydrated clinically basic metabolic panel was obtained to assess renal function. 1 L of normal saline was ordered and 4 mg of Zofran to treat his dehydration and nausea. Differential diagnosis includes viral illness, food poisoning, psychological etiology, obstruction. Did pass p.o. challenge. He will be discharged to home. ED Disposition - Plan for ED Patient: Disposition: Home or Assisted Living Diagnosis: Abdominal pain, vomiting, and diarrhea, Acute prerenal azotemia, Sinus tachycardia seen on lunchroom monitor Instructions: VOMITING AND DIARRHEA, Nonspecific (Adult) Referrals: Hawa Vaughn MD [Primary Care Provider] - 1-2 Days if not improving
[2019-05-10] MEDS: Ondansetron 4 MG/2 ML Vial IV (08:23)
[2019-05-10] MEDS: 0.9% Normal Saline 1,000 ML 1000 ML IV (08:23)
[2019-05-10 08:38] LABS: Anion Gap 9 (5-15); BUN 24 mg/dL (7-18); Calcium,Total 8.8 mg/dL (8.5-10.1); Chloride 104 mmol/L (98-107); Creatinine, Serum 0.89 mg/dL (0.70-1.30); EST Glomerular Filtration Rate 113 mL/min (>60); Est Glom Filt Rate - Afr Amer 137 mL/min (>60); Estimated Creatinine Clearance 138.66 ml/min; Glucose 110 mg/dL (74-106); Potassium 3.9 mmol/L (3.5-5.1); Sodium Level 140 mmol/L (136-145)
[2019-05-10 10:25] VITALS: BP 137/81; PULSE 110; RESP 16; O2SAT 99
[2019-05-10 10:53] VITALS: BP 121/73; PULSE 120; RESP 16; O2SAT 99
== END 2019-05-10 10:54 | disposition home or self-care (01) ==
PROVIDERS: Emergency Provider Emergency Medicine; PCP Internal Medicine
DX: R10.84 Generalized abdominal pain (principal); R11.2 Nausea with vomiting, unspecified; R19.7 Diarrhea, unspecified; R00.0 Tachycardia, unspecified; R79.89 Other specified abnormal findings of blood chemistry; I10 Essential (primary) hypertension; E78.5 Hyperlipidemia, unspecified; F90.9 Attention-deficit hyperactivity disorder, unspecified type; F42.9 Obsessive-compulsive disorder, unspecified; F41.9 Anxiety disorder, unspecified; Z79.899 Other long term (current) drug therapy
CPT/HCPCS: 80048; 96361; 96374; 99283; J7030; A4216; J2405

== ENCOUNTER 2019-09-01 12:30 | Outpatient (RCR) | payer MEDICARE, MEDICAID, SELFPAY ==
[2019-07-20 16:01] VITALS: BMI 31.1
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
--- NOTE | 2019-09-01 13:06 | HP.PTDCSUM ---
It has been my pleasure to treat HECTOR VELIZ referred by DEBBIE Lemus, with the diagnosis of SCIATICA for a total of 10 visit(s). Discharge Date: 09/01/19 Please see the following information for a summary of their discharge status. 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 REPORTS TODAY NEEDS TO BE HIS LAST DAY OF THERAPY BECAUSE HE IS MOVING. LOW BACK Pain Intensity (Out of 10): 6 LEFT THIGH Pain Intensity (Out of 10): 3 % Improvement: 75 Objective/Function: PATIENT WAS SEEN TODAY FOR RE-ASSESSMENT OF PROGRESS TOWARD THE SET PT GOALS AND THE NEED FOR FURTHER PHYSICAL THERAPY VS READINESS FOR DISCHARGE. ALL GOALS HAVE BEEN MET AND PATIENT IS APPROPRIATE FOR DISCHARGE BUT THIS PT ENCOURAGED PATIENT TO LOCATE A PT IN NEW AREA DUE TO CHRONICITY OF BACK CONDITION. REVIEWED HEP TODAY AND PATIENT COMMUNICATES A GOOD UNDERSTANDING OF ALL INSTRUCTIONS GIVEN. UPON EXAM TODAY: Sensory deficit: PATIENT APPEARS TO HAVE NUMBNESS IN THE RIGHT THIGH REGION AND ACTUALLY NORMAL SENSATION IN THE LLE EVEN THOUGH HIS C/O PAIN IS IN THE LEFT THIGH. ROM deficit: TIGHT SARAH LE HIP FLEXORS, HS'S AND GASTROC SOLEUS COMPLEX'S. LEFT HS TIGHTNESS > RIGHT. Dural Signs: POSITIVE LLE. Lumbar mvmt loss: flex - MIN. ext - MOD. R SG - MOD. L SG - MIN. Core strength: POOR. Palpation: NO ACUTE LUMBOSACRAL REGION TENDERNESS TODAY. OTHER: PATIENT HAS A BLISTER ON LEFT KNEE AND PATIENT RELATES IT TO WEEDING YESTERDAY. Goal 1:: DECREASE C/O LOW BACK AND SARAH LE SX'S. Goal 2:: IMPROVE PERSONAL CARE, LIFTING, SITTING, STANDING, AND WORK FUNCTION. Goal 3:: INSTRUCT IN PROPHYLAXIS Plan: D/C - PATIENT MOVING OUT OF THE AREA. If there are questions or concerns regarding this patient's physical therapy, please feel free to call me at [phone]. Thank you for the referral of this patient. Sincerely, Elicia Laurent, PT, Cert MDT
== END 2019-09-01 19:00 | disposition home or self-care (01) ==
LOC: PT 12:30
PROVIDERS: PCP Internal Medicine; Referring Provider Nurse Practitioner Family; Visit Provider Nurse Practitioner Family
DX: M54.42 Lumbago with sciatica, left side (principal); G89.29 Other chronic pain
CPT/HCPCS: 97014; 97110; 97112; 97162; 97164; 97530; G0283

== ENCOUNTER → 2020-08-14 | Outpatient (CLI) | payer MEDICARE, SELFPAY ==
[2020-08-14 11:32] VITALS: BMI 31.1
== END | disposition home or self-care (01) ==
PROVIDERS: PCP Internal Medicine; Referring Provider Physician Assistant; Visit Provider Physician Assistant
DX: J02.9 Acute pharyngitis, unspecified (principal); J06.9 Acute upper respiratory infection, unspecified; R05 Cough
CPT/HCPCS: 87633; 87635; U0005; U0003

== ENCOUNTER → 2020-08-23 | Outpatient (CLI) | payer MEDICARE, MEDICAID, SELFPAY ==
[2020-08-23 11:22] VITALS: BMI 31.1
[2020-08-23 15:02] LABS: Absolute Lymphocyte Count 2.37 X10^3/uL (0.83-4.51); Absolute Neutrophil Count 7.4 X10^3/uL (2.0-7.7); Basophil# 0.08 X10^3/uL; Basophil% 0.7 % (0-1); Eosinophil# 0.18 X10^3/uL; Eosinophils% 1.7 % (0-5); Hematocrit 46.3 % (40-54); Hemoglobin 14.9 g/dL (13.0-16.5); Lymphocyte # 2.37 X10^3/ul (0.83-4.51); Lymphocyte % 21.8 % (19-41); Mean Corp Hgb Conc 32.2 g/dL (32-36); Mean Corpuscular Hgb 29.3 pg (27.0-32.0); Mean Platelet Vol. 9.4 fl (6.2-12.0); Monocyte# 0.64 X10^3/uL; Monocyte% 5.9 % (0-10); NRBC Flagged by Analyzer 0 % (0-5); Neutrophil # 7.43 X10^3/uL (2.7-7.7); Neutrophil % 68.5 % (47-70); Platelet Count 426 K/mm3 (150-450); RBC Distribution Width CV 11.7 % (11.6-14.6); RBC Distribution Width SD 38.9 fl (35.1-43.9); Red Blood Count 5.09 M/mm3 (4.6-6.2); White Blood Count 10.9 K/mm3 (4.4-11.0)
[2020-08-23 15:17] LABS: Vitamin B12 816 pg/mL (211-911); Vitamin D,25 Hydroxy 22.8 ng/mL
[2020-08-23 15:24] LABS: AST(SGOT) 28 U/L (15-37); Alanine Aminotransfer ALT/SGPT 59 U/L (16-61); Albumin, Serum 4.1 g/dL (3.2-5.0); Alkaline Phosphatase 65 U/L (45-117); Anion Gap 8 (5-15); BUN 23 mg/dL (7-18); BUN/Creat Ratio 26.6 RATIO (10-20); Calcium,Total 9.6 mg/dL (8.5-10.1); Chloride 105 mmol/L (98-107); Cholesterol 256 mg/dL (200); Creatinine, Serum 0.87 mg/dL (0.70-1.30); EST Glomerular Filtration Rate 115 mL/min (>60); Est Glom Filt Rate - Afr Amer 139 mL/min (>60); Glucose 86 mg/dL (74-106); High Density Lipoprotein 31 mg/dL; Potassium 4.5 mmol/L (3.5-5.1); Protein, Total 8.1 g/dL (6.4-8.2); Sodium Level 139 mmol/L (136-145); Thyroid Stim Hormone (TSH) 1.49 uIU/mL (0.358-3.74); Triglycerides 314 mg/dL; Very Low Density Lipoprotein 63 mg/dL (5-40)
[2020-08-23 15:39] LABS: Amphetamine Urine VISTA POSITIVE (<1000 ng/mL); Barbiturate Urine VISTA NEGATIVE (< 200 ng/mL); Benzodiazepine Urine VISTA NEGATIVE (< 200 ng/mL); Cocaine Urine VISTA NEGATIVE (< 300 ng/mL); Ecstacy Urine VISTA NEGATIVE (< 500 ng/mL); Methadone Urine VISTA NEGATIVE (< 300 ng/mL); PCP Urine VISTA NEGATIVE (< 25 ng/mL); THC Urine VISTA POSITIVE (< 50 ng/mL); Vista UDS pH Range 6
== END | disposition home or self-care (01) ==
LOC: BIMLAB 11:55
PROVIDERS: PCP Internal Medicine; Referring Provider Nurse Practitioner Family; Visit Provider Nurse Practitioner Family
DX: E78.00 Pure hypercholesterolemia, unspecified (principal); F32.9 Major depressive disorder, single episode, unspecified; F41.9 Anxiety disorder, unspecified; F90.9 Attention-deficit hyperactivity disorder, unspecified type; I10 Essential (primary) hypertension; M53.9 Dorsopathy, unspecified; R00.0 Tachycardia, unspecified; R53.82 Chronic fatigue, unspecified; E55.9 Vitamin D deficiency, unspecified; E56.9 Vitamin deficiency, unspecified; R40.0 Somnolence
CPT/HCPCS: 36415; 80053; 80061; 80307; 82306; 82607; 84443; 85025

== ENCOUNTER → 2020-09-21 22:15 | Outpatient (CLI) | payer MEDICARE, MEDICAID, SELFPAY ==
[2020-08-23 11:22] VITALS: BMI 31.1
[2020-09-19 13:45] VITALS: BMI 31.1
== END ==
PROVIDERS: PCP Nurse Practitioner Family; Referring Provider Nurse Practitioner Family; Visit Provider Nurse Practitioner Family
DX: G47.10 Hypersomnia, unspecified (principal); R40.0 Somnolence
CPT/HCPCS: 95810

== ENCOUNTER → 2020-10-03 11:39 | Outpatient (CLI) | payer MEDICARE, MEDICAID, SELFPAY ==
[2020-09-19 13:45] VITALS: BMI 31.1
--- NOTE | 2020-10-03 20:37 | STRESSREP_ITS ---
Stress Test Report Date: 10-03-2020 Procedure: Exercise tolerance test Indications: Chest pain Consent: Per the patient Procedure: The patient exercised on a Leif protocol for 9 minutes and 30 seconds completing Stage III and 30 seconds of Stage IV achieving a peak heart rate of 179 bpm (91% predicted maximal heart rate) with a peak blood pressure 156/8 mmHg and a peak MET capacity of approximately 10 MET's. The baseline ECG demonstrated sinus tachycardia; nonspecific ST segment abnormality. The peak exercise ECG demonstrated somatic/motion artifact with no obvious ECG changes. There were no cardiac dysrhythmias pretest, during exercise, or recovery. The functional capacity was considered good. The patient had no complaint of chest discomfort during exercise or recovery. The examination was discontinued secondary to dyspnea. Impression: 1. Technically adequate (percent predicted maximal heart rate greater than 85%) exercise tolerance test 2. Peak exercise ECG with somatic/motion artifact with no obvious ECG changes 3. There were no cardiac dysrhythmias during exercise or recovery This note was generated with [employer] software. It may contain incorrect words, spelling, and punctuation that were not noted in checking the note before signing.
== END ==
PROVIDERS: PCP Nurse Practitioner Family; Referring Provider Nurse Practitioner Family; Visit Provider Nurse Practitioner Family
DX: R07.9 Chest pain, unspecified (principal)
CPT/HCPCS: 93017

== ENCOUNTER 2020-11-20 14:02 | Outpatient (RCR) | payer MEDICARE, MEDICAID, SELFPAY ==
[2020-09-19 13:45] VITALS: BMI 31.1
== END 2020-12-06 23:59 ==
LOC: NS 14:02
PROVIDERS: PCP Nurse Practitioner Family; Visit Provider Family Medicine
DX: Z71.3 Dietary counseling and surveillance (principal); E66.01 Morbid (severe) obesity due to excess calories; Z68.36 Body mass index [BMI] 36.0-36.9, adult
CPT/HCPCS: 97802

== ENCOUNTER → 2020-12-04 | Outpatient (CLI) | payer MEDICARE, MEDICAID, SELFPAY | END | disposition home or self-care (01) | LOC: LABSPEC 12:00 | PROVIDERS: PCP Nurse Practitioner Family; Referring Provider Physician Assistant Surgical; Visit Provider Physician Assistant Surgical | DX: Z11.52 Encounter for screening for COVID-19 (principal) | CPT/HCPCS: 87635; U0005; U0003 ==

== ENCOUNTER → 2020-12-10 12:54 | Outpatient (CLI) | payer MEDICARE, MEDICAID, SELFPAY ==
--- NOTE | 2020-12-10 12:56 | CT_ITS ---
STUDY: CT ABDOMEN AND PELVIS WITHOUT CONTRAST REASON FOR EXAM: Male, 25 years old. Flank pain, history of kidney stones RADIATION DOSAGE (If Supplied By Facility): CTDIvol = ( 20.00 ) mGy, DLP = ( 1139.27 ) mGycm TECHNIQUE: Transaxial images were obtained from the dome of the diaphragm to the symphysis pubis without oral contrast, and without intravenous contrast. Sagittal and coronal images were reconstructed. Individualized dose optimization techniques were used for this CT. COMPARISON: None. FINDINGS: The visualized lung bases are unremarkable. The visualized portions of the heart are within normal limits. Normal liver. Normal gallbladder and extrahepatic biliary system. Normal spleen. Normal pancreas. Normal bilateral adrenal glands. Normal right kidney. Normal left kidney. Moderately distended stomach with residual contents. No demonstrated gastric wall thickening. Normal small intestine. There are multiple colonic diverticula consistent with diverticulosis. The appendix is visualized and appears normal. Normal abdominal aorta. Normal inferior vena cava. Normal retroperitoneum. Normal urinary bladder. Bilateral fat-containing inguinal hernias. Small fat-containing periumbilical hernia. Normal osseous structures. CT/Abdomen/Pelvis without Cont IMPRESSION: 1. No hydronephrosis or urinary tract calcifications. 2. Gastric distention. Electronically Signed: Ed Calvert MD ([place]) at 13:28 EDT , Service support ,
== END ==
PROVIDERS: PCP Nurse Practitioner Family; Referring Provider Internal Medicine; Visit Provider Internal Medicine
DX: R10.9 Unspecified abdominal pain (principal)
CPT/HCPCS: 74176

== ENCOUNTER 2021-01-01 14:00 | Outpatient (RCR) | payer MEDICARE, MEDICAID, SELFPAY ==
[2020-12-07 00:08] VITALS: BMI 31.1
== END 2021-01-06 23:59 ==
LOC: NS 14:00
PROVIDERS: PCP Nurse Practitioner Family; Visit Provider Family Medicine
DX: Z71.3 Dietary counseling and surveillance (principal); E66.01 Morbid (severe) obesity due to excess calories; Z68.36 Body mass index [BMI] 36.0-36.9, adult
CPT/HCPCS: 97803

== ENCOUNTER 2021-01-30 11:00 | Outpatient (RCR) | payer MEDICARE, MEDICAID, SELFPAY ==
[2021-01-07 00:08] VITALS: BMI 31.1
== END 2021-02-05 23:59 ==
LOC: NS 11:00
PROVIDERS: PCP Nurse Practitioner Family; Visit Provider Family Medicine
DX: Z71.3 Dietary counseling and surveillance (principal); E66.01 Morbid (severe) obesity due to excess calories; Z68.36 Body mass index [BMI] 36.0-36.9, adult
CPT/HCPCS: 97803

== ENCOUNTER 2021-05-03 09:43 | Outpatient (CLI) | payer MEDICARE, OTHER, MEDICAID, SELFPAY ==
[2021-05-03 09:46] LABS: Bacteria 0 SEEN /hpf (None Seen); Mucous, Urine 0 SEEN /hpf (<or=2+); Red Blood Cells-Urine 0 SEEN /hpf (0-5); Squamous Epithelial Cells - UA 0 SEEN /hpf (0-5); White Blood Cells 0 SEEN /hpf (0-5)
[2021-05-03 12:13] LABS: Absolute Lymphocyte Count 1.37 X10^3/uL (0.83-4.51); Absolute Neutrophil Count 5.7 X10^3/uL (2.0-7.7); Basophil# 0.03 X10^3/uL; Basophil% 0.4 % (0-1); Eosinophil# 0.13 X10^3/uL; Eosinophils% 1.7 % (0-5); Lymphocyte # 1.37 X10^3/ul (0.83-4.51); Lymphocyte % 17.4 % (19-41); Mean Corp Hgb Conc 32.7 g/dL (32-36); Mean Corpuscular Hgb 29.6 pg (27.0-32.0); Mean Corpuscular Volume 90.6 fL (80-94); Monocyte# 0.61 X10^3/uL; Monocyte% 7.8 % (0-10); NRBC Flagged by Analyzer 0 % (0-5); Neutrophil % 72.4 % (47-70); Platelet Count 332 K/mm3 (150-450); RBC Distribution Width CV 12.3 % (11.6-14.6); RBC Distribution Width SD 40.4 fl (35.1-43.9); Red Blood Count 5.41 M/mm3 (4.6-6.2); White Blood Count 7.9 K/mm3 (4.4-11.0)
[2021-05-03 12:33] LABS: Color, Urine Yellow (Yellow); Glucose, Dipstick Normal (Normal); Ketone-Dipstick Negative (Negative); Leukocyte Esterase-Dipstick Negative /ul (Negative); Nitrite-Dipstick Negative (Negative); Occult Blood-Urine Negative /ul (Negative); Protein-Dipstick Negative (Negative); Specific Gravity, Urine 1.025 (1.002-1.030); Urine Bilirubin Dipstick Negative (Negative); Urine Clarity Clear (Clear); Urine Urobilinogen Normal (Normal)
[2021-05-03 12:37] LABS: ALB/GLOB Ratio 1.1 RATIO (0.9-2.4); AST(SGOT) 25 U/L (15-37); Alanine Aminotransfer ALT/SGPT 44 U/L (16-61); Albumin, Serum 4.2 g/dL (3.2-5.0); Alkaline Phosphatase 80 U/L (45-117); Anion Gap 5 (5-15); BUN 22 mg/dL (7-18); Calcium,Total 9.4 mg/dL (8.5-10.1); Chloride 108 mmol/L (98-107); Creatinine, Serum 0.96 mg/dL (0.70-1.30); EST Glomerular Filtration Rate 102 mL/min (>60); Est Glom Filt Rate - Afr Amer 124 mL/min (>60); Globulin 3.8 g/dL (2.2-4.2); Glucose 90 mg/dL (74-106); Sodium Level 137 mmol/L (136-145); Thyroid Stim Hormone (TSH) 1.82 uIU/mL (0.358-3.74)
[2021-05-03 12:40] LABS: Calcium Oxalate Crystals Ur 1+ /hpf (<or=2+)
[2021-05-03 13:02] LABS: HIV - WCH Non-Reactive (Nonreactive); Hepatitis B Surface Antigen Non-Reactive (Nonreactive); Hepatitis C Antibody Non-Reactive (Nonreactive); Syphilis Antibodies Non-reactive
[2021-05-03 14:32] LABS: Chlamydia Trachomatis by PCR Negative (Negative); Neisserai gonorrhoeae by PCR Negative (Negative); Probe Check PASS; Sample Adequacy Control PASS; Specimen Processing Control PASS
[2021-05-08 10:10] LABS: Testosterone, Free 19.27 ng/dL (5.00-21.00)
[2021-05-08 13:35] LABS: Testosterone, % Free 4.18 % (1.50-4.20); Testosterone, Total 461 ng/dL (264-916)
== END 2021-05-03 23:59 | disposition home or self-care (01) ==
LOC: BIMLAB 09:45
PROVIDERS: PCP Nurse Practitioner Family; Referring Provider Nurse Practitioner Family; Visit Provider Nurse Practitioner Family
DX: M53.9 Dorsopathy, unspecified (principal); F52.32 Male orgasmic disorder; L65.9 Nonscarring hair loss, unspecified; Z72.51 High risk heterosexual behavior; L70.9 Acne, unspecified; E78.00 Pure hypercholesterolemia, unspecified; R00.0 Tachycardia, unspecified
CPT/HCPCS: 36415; 80053; 81001; 84402; 84403; 84443; 85025; 86703; 86780; 86803; 87086; 87340; 87491; 87591

== ENCOUNTER 2021-10-07 08:00 | Outpatient (RCR) | payer OTHER, MEDICARE, SELFPAY ==
--- NOTE | 2021-10-07 09:05 | BH.SGPN.GN ---
Behaviors/Verbalizations/Mental Status: []Pt alert and oriented, neatly dressed and groomed. Eye contact fair. Motor activity restless. Speech within normal limits. Affect constricted, mood anxious and agitated. Thoughts linear, logical, no signs of hallucinations or delusions. Reviewed pt?s symptom tracker, no risk for suicidal ideation, plan, or intent as of 10/07/21 Client Response/Progress/Benefit: []Pt's first day of PHP tx and reports feeling anger, anxious, and agitated this morning. Pt shared he is not sure what he wants to work on yet in the program, but he has a lot of ideas. Pt shared this weekend was overall good for him as pt was able to cope with several triggers and stressors. Pt appeared to benefit from connecting with peers and seeing how process group is structured. Pt will continue PHP tx to prevent decompensation, gain healthy coping skills, and reduce use of unhealthy coping skills. Narrative Note: []
--- NOTE | 2021-10-07 10:05 | BH.SGPN.GN ---
Behaviors/Verbalizations/Mental Status: [] Client alert and oriented, neatly dressed and groomed. Eye contact good. Motor activity appropriate. Speech within normal limits. Affect congruent, mood euthymic and anxious. Thoughts linear, logical, no signs of hallucinations or delusions Client Response/Progress/Benefit: [ ] Client 1st day in program, but was attentive throughout AEB providing input and taking notes in group. Attentive during psychoeducation on 4 types of conflict styles (Competing, Collaborating, Avoiding, and Accommodating). Worked with group to define conflict and identify how conflict is helpful. With peers identified barriers to addressing or managing conflict which included: fear of upsetting others, fear of the outcome, and lack of confidence. Client believes he uses cooperative style the most, but shared at times he can be competing. Appeared to benefit from group due to increase insight and awareness of benefits to conflict, conflict styles, and obstacles to managing conflict. Will continue in IOP to increase overall functioning and increase coping utilization. Narrative Note: []
--- NOTE | 2021-10-07 11:07 | BH.SGPN.GN ---
Behaviors/Verbalizations/Mental Status: [ ] Client alert and oriented, neatly dressed and groomed. Eye contact good. Motor activity appropriate. Speech within normal limits. Affect congruent, mood euthymic and anxious. Thoughts linear, logical, no signs of hallucinations or delusions. Client Response/Progress/Benefit: [] Client engaged in session AEB contributing to discussion and engaging in activity. Client did well to review current conflict style and its impact on mental health. Attentive during discussion on strategies for more effectively managing conflict in personal life. Client participated in activity and did well to be assertive and collaborating. Client given handout on fair fighting rules. Client indicated that he was going to work on not using degrading language during conflict. Client shared that he tends to do that with his parents, which he feels makes the outcome worse for him. Appeared to benefit from gaining strategies to help client better manage conflict. Will continue IOP tx to reduce negative thinking patterns, increase overall functioning, and increase self-care. Narrative Note: []
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
--- NOTE | 2021-10-08 09:05 | BH.SGPN.GN ---
Behaviors/Verbalizations/Mental Status: [] Eye contact is good. Motor activity is appropriate. Appearance is casual. Speech is Appropriate. Mood is anxious. Affect is congruent. Thoughts are linear and logical. No evidence of psychosis. Reviewed daily check in sheet and no reports of suicidal ideations or intent. Client Response/Progress/Benefit: [] Pt participated at times during the group discussion. Attentive. Mental health win from yesterday was completing a project which provided a healthy distraction. He notes a trigger yesterday which involved filling out unemployment paperwork. This triggered memories of his job and perception that he was bullied there. This trigger led to irritability, depression, and anxiety. I wanted to self-medicate with whatever was around. Low frustration tolerance and need for immediate relief of any emotional distress. He was able to implement skills and distract himself and did not self-medicate. Group praised him for his use of healthy skills. I tend to hyper-focus on things and thoughts which can be good or bad. Progress noted per pt report. Will continue in [facility] to maintain safety, prevent decompensation, and to stabilize mood. Narrative Note: []
--- NOTE | 2021-10-08 10:10 | BH.SGPN.GN ---
Behaviors/Verbalizations/Mental Status: []Client alert and oriented, casually dressed and groomed. Eye contact good. Motor activity appropriate. Speech loud and monotone. Affect congruent, mood euthymic. Thoughts linear, logical, no signs of hallucinations or delusions. Client Response/Progress/Benefit: []Client was an active participant AEB contributing to discussion, taking notes, and engaging in group activity. Connected with the topic of pitfalls and listened to group discussion on barriers that prevent from choosing a healthier path to mental wellness. Group worked together to identify examples of personal pitfalls which included; resentment/anger, stigma, shutting down, low motivation, making excuses, denial, distortions, and unhealthy coping. Client identified self-medicating, avoidance, impulsive decisions, and predicting the future as personal pitfalls that have inhibited progress in the past. Client benefited from group as she learned to better identify potential barriers to improving mental health symptoms. Client will continue PHP tx to improve daily functioning, increase mood stability and prevent decompensation.
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
--- NOTE | 2021-10-08 10:51 | BH.MTP ---
Master Treatment Plan - Patient Information Program Physician:: Ceci Perkins Primary Therapist:: Eladio Carcamo - Psychiatric Diagnoses Psychiatric Diagnoses:: 1. Bipolar 2 disorder. 2. Generalized anxiety disorder. 3. Tourette's, history of OCD, autism. 4. ADHD. 5. Marijuana and kratom use disorders Diagnosis Code(s):: F31.81 - Estimated LOS Estimated LOS (in weeks):: 2 Problem/Goal #1 - Problem/Goal #1 Stated Goal:: Client will increase mood stability and reduce depression, irritability, and SI through Intensive Outpatient Services AEB self-report of reduction in intensity, frequency, and severity of symptoms. Description of Barriers: impulsivity, low frustration tolerance, limited support, unhealthy coping skills, limited coping skills, poor emotion regulation. Functional Impact: Recently lost job due to mood instability. Mood instability has negatively impacted relationships. Mood instability is trigger to self-medicate. Goal Relevant Strengths/Supports: appears motivated, willing to learn. - Objectives Objective #1 Stated Objective: Client will work with therapist to develop a ?crisis plan? which includes emergency telephone numbers, 3-4 coping strategies for SI/overwhelming emotions, lists of supports, warning signs, positive aspects of life, and motivations.? Interventions: Therapist will provide patient with safety plan worksheet and work with pt. to develop individualized plan Discharge Criteria: Pt will have completed individualized safety plan. Target Date: 10/18/21 Review Date: 10/16/21 Objective #2 Stated Objective: Client will identify 5 physical warning signs of anger and 5 ways to calm and manage anger. Interventions: Through individual and group counseling will teach client calming techniques as part of a tailored strategy for reducing chronic and acute physiological tension that accompanies the escalation of his/her angry feelings. Discharge Criteria: Identify physiological warning signs to anger, anger buttons, and skills to cashier manager anger AEB by self-report Target Date: 10/18/21 Review Date: 10/16/21 Problem/Goal #2 - Problem/Goal #2 Stated Goal:: Stabilize anxiety level while increasing ability to function on a daily basis AEB self-report. Description of Barriers: impulsivity, low frustration tolerance, limited support, unhealthy coping skills, limited coping skills, poor emotion regulation. Functional Impact: inability to manage anxiety has resulted in decreased overall functioning and contributes to mood instability. Goal Relevant Strengths/Supports: appears motivated, willing to learn. - Objectives Objective #1 Stated Objective: Develop a concrete list of calming skills to use when in crisis. Interventions: Through individual and group counseling will teach the client calming/relaxation skills (e.g., muscle relaxation, mindful breathing) and how to discriminate better between relaxation and tension; teach the client how to apply these skills to his/her daily life. Discharge Criteria: Will have completed concrete list of skills to utilize when in crisis. Target Date: 10/18/21 Review Date: 10/16/21
--- NOTE | 2021-10-08 11:15 | BH.SGPN.GN ---
Behaviors/Verbalizations/Mental Status: []Pt alert and oriented, neatly dressed and groomed. Eye contact good. Motor activity appropriate. Speech within normal limits. Affect constricted, mood anxious. Thoughts linear, logical, no signs of hallucinations or delusions Client Response/Progress/Benefit: []Pt receptive of session, engaged throughout AEB pt actively listening and contributing to discussion, as well as taking notes.? Pt participated in the experiential activity and did well to communicate ideas with peers and manage anxiety in the moment. Pt and group processed how the emotions and perspective of the group impacted the activity. Group worked together to identify different coping skills to help manage pitfalls. Pt identified pitfalls they struggle with and shared wanting to work on gaining more awareness and coping skills. Pt shared he has been self-medicating basically to not have to think about it and this has caused pt many problems. Benefited from identifying personal pitfalls and strategies to overcome these pitfalls. Will continue PHP tx to prevent decompensation, gain healthy coping skills to reduce self-medicating, and improve daily functioning. Narrative Note: []
--- NOTE | 2021-10-08 14:00 | BH.MDN ---
Multi-Disciplinary Note - Note 45-min Individual Time Started:: 12:00 Date: 10/08/21 Purpose of session/treatment goals addressed:: Reviewed current progress and symptoms. Worked on safety plan. Eye Contact:: Good Motor Activity:: Restless Appearance:: Casual Speech:: Appropriate Mood:: Anxious Affect:: Flat Thoughts:: Logical, No evidence of hallucinations/delusions noted Staff Interventions:: completed risk assessment / safety planning Client Response:: Pt talked about his struggles and wins yesterday after PHP. He reported intense anxiety and panic in the evening which led to rocking and significant ruminations. This occurred when he was alone at home. He has some difficulty recalling the thoughts that were going through his head however the trigger has to do with filling out unemployment paperwork. It was a trigger regarding his recent job loss which led to increased anger, worry, and sadness. It was so overwhelming her reported that he was rocking back and forth. His emotions are extremely intense and he notes that he hyper-focuses on them which can cause him to escalate quickly. Significant urge to self-medicate with something. In the moment he was able to implement coping strategies and skills discussed in PHP yesterday to lower the intensity of thoughts and mood. Also was able to distract. Insight that he he can distract or divert his focus for 30 seconds to a minute he has a chance. We worked together on a safety plan which involved identifying warning signs, Risks/Concerns:: Denies active suicidal ideations, plan, or intent today. Progress Toward Goals/Plan:: Progress noted. Pt reports implementing recently learned coping strategies to manage crisis yesterday. In reviewing his thoughts and behaviors yesterday we were also able to identify actions that he took to benefit his mental health (Self-care, activity, distraction, awareness, affirmations, etc) and discussed ways to develop routine to use these on daily basis to prevent getting overwhelmed. Pt reports extremely intense emotions and rapid shifts in mood throughout the day. When emotions are intense impulsivity, anger outbursts, extreme depression, and SI does occur. These intense shifts occur with day to day stressors, however when crisis events occur (i.e. losing job) intensity is very high which is concerning. Low frustration tolerance and anger outbursts. Also strong urge to cope with self-medicating with marijuana, however remains sober. Time Stopped:: 12:45
--- NOTE | 2021-10-09 09:00 | BH.SGPN.GN ---
Behaviors/Verbalizations/Mental Status: []Pt alert and oriented, casually dressed and groomed. Eye contact good. Motor activity appropriate. Speech within normal limits. Affect congruent, mood euthymic. Thoughts linear, logical, no signs of hallucinations or delusions. Reviewed pt?s symptom tracker, no risk for suicidal ideation, plan, or intent as of 10/09/21 Client Response/Progress/Benefit: []Pt responded well to session, attentive and providing supportive statements. Pt reports feeling content and bored this morning. Pt shared he went to the gym for the first time in 2 months yesterday and he was not high which was an additional positive. Pt stated he used to be unable to go to the gym without being high, but he enjoyed it and it was 1/10th as stressful as I thought it would be. Pt's stressor today is that he will be seeing the [facility] psychiatrist today and he is fearful about getting his medications changed. Group and basket turner helped pt process this and encouraged open communication. Appeared to benefit from reflecting on application of coping skills. Will continue PHP tx to reduce use of unhealthy coping skills, prevent decompensation, and increase self-awareness. Narrative Note: []
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
--- NOTE | 2021-10-09 11:10 | BH.SGPN.GN ---
Behaviors/Verbalizations/Mental Status: []Client alert and oriented, casually dressed and groomed. Eye contact good. Motor activity appropriate. Speech loud. Affect congruent. Mood euthymic. Thoughts linear, logical, no signs of hallucinations or delusions. Client Response/Progress/Benefit: []Client engaged in session AEB listening attentively to others and providing input throughout discussions. Client was an active participant in challenge activity. Client remained attentive during discussion about the 4 A's of managing stress and expressed connecting with the various benefits of each. Shared he would like to work on managing stressor of conflicts with his parents by using stress management skills of avoiding unnecessary arguments. Client stated there are times he will pick a fight that causes undue stress. Stated he can also alter is approach to conflict by changing environment. Client seemed to benefit from increased awareness of the impact of stress on mental health and increasing repertoire of stress management strategies. Will continue PHP tx to improve daily functioning, increase healthy coping and prevent decompensation.
[2021-10-09 11:51] VITALS: BP 132/82; PULSE 71
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
--- NOTE | 2021-10-09 12:18 | BH.DR.ITP ---
Initial Treatment Plan Patient Information Visit Information: ADMISSION DATE: EXPECTED LOS: 4-6 weeks Problems/Symptoms Problem #1:: Mood instability Symptom:: Recent depression, irritability, anger, rapid cycling, impulsivity, risky behaviors. Symptom:: Recent fleeting suicidal ideation with thoughts of methods; recent hopelessness and worthlessness Problem #2:: Anxiety Symptom:: Worry, panic attacks
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
--- NOTE | 2021-10-10 10:10 | BH.SGPN.GN ---
Behaviors/Verbalizations/Mental Status: [] Eye contact is poor. Motor activity is restless at times. Appearance is casual. Speech is Appropriate. Mood is anxious/irritable. Affect is congruent. Thoughts are linear and logical. No evidence of psychosis. Client Response/Progress/Benefit: [] Pt participated when prompted. Attentive during psychoeducation. Pt along with peers were able to identify several negatives on the picture given to the group. Pt and peers also identified positives in the picture, however overall found less positives than negatives. Attentive and took notes during interactive discussion on the definition of perspective, how perspective is formed, and why perspective is important. Attentive as peers identified that perspective can be impacted by; emotions, past experiences, mental health illness, upbringing, physical health, and age. Increased awareness on the connections between perspective and mental health. Will continue in PHP to maintain safety, increase healthy coping, improve functioning, and prevent decompensation. Narrative Note: []
--- NOTE | 2021-10-10 11:10 | BH.SGPN.GN ---
Behaviors/Verbalizations/Mental Status: []Pt alert and oriented, casually dressed and groomed. Eye contact good. Motor activity appropriate. Speech within normal limits. Affect labile, mood anxious. Thoughts linear, logical, no signs of hallucinations or delusions. Client Response/Progress/Benefit: []Pt was attentive and contributed in small and larger group discussion. Pt completed strengths exploration worksheet and identified personal strengths to include: love, ambition, love of learning, persistence, and honesty. Pt shared that working to recognize these personal strengths more consistently will help improve pt?s mood and increase self-worth. Shared wanting to focus on fostering personal strengths by setting a reminder on his phone to reflect on his persistence. Benefited from identifying personal strengths and strategies for enhancing use of identified strengths. Pt to continue PHP tx to prevent decompensation, gain healthy coping skills to manage mood and anxiety, and reduce impulsivity.?? Narrative Note: []
--- NOTE | 2021-10-10 11:20 | BH.MDN ---
Multi-Disciplinary Note - Note 60-min Individual Time Started:: 09:00 Date: 10/10/21 Purpose of session/treatment goals addressed:: Pt began laughing and singing during group setting with no apparent cause. This was unsettling to staff and peers. Taken out of group for individual session. Pt reports this behavior is common and happens a couple times a month when he has overwhelming emotions. It helps me calm. Eye Contact:: Good Motor Activity:: Restless Appearance:: Casual Speech:: Appropriate Mood:: Anxious, Depressed Affect:: Congruent Thoughts:: Linear, Logical, No evidence of hallucinations/delusions noted Staff Interventions:: mindfulness skills, completed risk assessment / safety planning, taught coping skills Client Response:: Pt reports that he had a very traumatic event that occurred last evening. According to pt his parents got into a very intense verbal argument which led to some pushing. Pt did not cause nor was he involved in the argument or altercations, however he did witness this. According to patient he has witnessed this before. Pt was fearful which triggered anxiety and anger. He was unsure what to do and made loud noises with tools in the garage to distract them. When parents calmed he left the house, however per pt his mother continued to call and trigger him by stating that he needed to come back home b/c they had an appointment with a lipcoat sprayer to sign paperwork. I used skills but I was paralyzed with emotions. When he arrived home he continued to be triggered which led to panic, anger, and suicidal thoughts. When this occurred he took an edible and smoked weed. My suicidal thoughts went away . Able to calm the rest of the night and eventually fall asleep. Mother called this AM and pt reports being immediately triggered again and didn't want to attend [facility]. Was overwhelmed when he arrived. Very anxious, stressed, and ruminating on the events from yesterday. When he gets like this he will sing loudly and force himself to laugh which he did in the group room, which was unsettling to staff and peers. Pt asked for stress ball and therapist along with patient practiced mindfulness skills, breathing skills, and processed the event yesterday. Reviewed safety plan and wrote down concrete skills to utilize if this occurs again. Reiterated to pt that he can utilize PRN medications when overwhelmed like last night yea I forgot that ... that would have helped. After practicing skills in session reports his anxiety is decreased. We briefly touched on appropriateness of singing loudly and laughing loudly for no reason in social settings (provided examples). Poor social awareness and skills. We came up with plan if he is overwhelmed to talk to staff to help him assist with healthy and appropriate calming skills. Came up with plan for the rest of the day which involved distractions and utilizing time to look up more mindfulness skills. Given a list. Risks/Concerns:: Denies active suicidal ideations, plan, or intent. Contracts for safety. Reports suicidal ideations for 20 minutes yesterday. Never any plan or intent. After spoking weed they went away. Progress Toward Goals/Plan:: Regression from yesterday due to acute stressor (witnessing parents verbally arguing and pushing). Pt has limited coping skills when overwhelmed or triggered to help calm. The skills he does have are very child-like (forcing himself to laugh, singing or rapping aloud, and facial grimacing). We practiced more age-appropriate and healthy skills in session and he was given list and instructions on how to complete these. Poor social awareness which appears to be contributing factor in no social relationships and lost jobs as he reports he has laughed for no reasons and sang loudly at work in the past. When explained how these can be perceived states never thought of that. After session he reports decreased anxiety and stress. Returned to group. Although pt self-medicated with substances he did report trying skills at times during distress. He also choose to leave environment that was triggering and set boundaries with parents, however per pt they did not respect them. Primary trigger according to pt our his parents however they are also primary support and help him considerably with his finances. Time Stopped:: 10:00
--- NOTE | 2021-10-10 12:24 | BH.COMM ---
Communication Note - Communication with Client Communication Note: Checked in with patient after group stating I feel much better. States I was able to work through the emotions. If I can distract and be mindful for 20 minutes things are good. Utilized stress ball and other skills this AM while in 2nd and 3rd group. He shared that he had some bad moments today and yesterday however its doesn't have to stay with me all day. Increased skills and confidence as they were effective this AM.
--- NOTE | 2021-10-11 13:33 | BH.MDN_ITS ---
Multi-Disciplinary Note - Note 45-min Individual Time Started:: 12:30 Date: 10/11/21 Purpose of session/treatment goals addressed:: Addressed treatment goal 1. Reviewed current symptoms and progress. Eye Contact:: Fair Motor Activity:: Other - pt has odd tics, facial grimacing, smile inappropriately, and making physical gestures. He states they worsen when anxious. Appearance:: Casual Speech:: Appropriate Mood:: Anxious Affect:: Full Thoughts:: Linear, Logical, No evidence of hallucinations/delusions noted Staff Interventions:: thought challenging, psychoeducation on: - anger/impulsivity management, taught coping skills Client Response:: After PHP yesterday pt followed through with goals. He researched mindfulness skills on the internet, practiced skills learned in PHP yesterday, and found healthy distractions to focus on. Overall his day yesterday and today is going well. He used 5 senses skill last night and said it helped. Used the session today to focus on anger management and impulsivity skills. He identified anger triggers/buttons which were when people lie to me and when people ignore him. Primarily this occurs with his parents. We discussed skills including walking away from arguments which he stated If I walk away I'm a loser. This belief is pretty strong and is why his verbal arguments with parents escalate. If I walk away then they win and I don't get what I want. Education on aggressive vs assertive communication which pt struggled to follow as he has been conditioned to yell or scream till he gets what he wants. Able to see that this unhealthy communication is mainly with pa rents. Agreed to try some assertive communication skills. Risks/Concerns:: Denies any SI or HI. Progress Toward Goals/Plan:: Pt continues to make progress. He is learning and implementing new skills in PHP and seeing benefits. Very rigid beliefs and absolute thinking. Poor social cue awareness. Poor social skills. Poor communication skills. Poor emotion regulation. Only support are parents and that relationship based on pt's reports is very conflicted and unhealthy. Very basic concept of importance of walking away from triggers took 30 minutes due to mistaken beliefs and rigid thinking going back to teenage years. Focused on obtaining consistent job and relationship however has struggled in these areas. I will never be happy until I have a GF and get . Plan is to continue in PHP to prevent decompensation, stabilize mood, increase healthy coping, and improve functioning. Time Stopped:: 01:15
--- NOTE | 2021-10-14 09:00 | BH.SGPN.GN ---
Behaviors/Verbalizations/Mental Status: [] Eye contact is good. Motor activity is appropriate. Appearance is casual. Speech is Appropriate. Mood is anxious. Affect is congruent. Thoughts are linear and logical. No evidence of psychosis. Reviewed daily check in sheet and no reports of suicidal ideations or intent. Client Response/Progress/Benefit: [] Pt participated when prompted. Attentive. Daily symptom tracker notes no significant distress. Emotion for today is euphoric. He is quit to point out that it is not associated with any jerome. Shared with the group that he was able to not smoke weed over the weekend. Implementing skills such as mindfulness, distraction, and assertive communication which is benefiting his mental health. He shared that he changed up how he communicates with his parents this weekend and noticed it worked. Identified stressors as being bored and managing distress and anger. Benefited from group support, encouragement, and feedback. Will continue in PHP to maintain safety, prevent decompensation,and stabilize mood. Narrative Note: []
--- NOTE | 2021-10-14 10:10 | BH.SGPN.GN ---
Behaviors/Verbalizations/Mental Status: [] Client alert and oriented, neatly dressed and groomed. Eye contact good. Motor activity appropriate. Speech normal. Affect congruent, mood euthymic, Thoughts linear, logical, no signs of hallucinations or delusions. Client Response/Progress/Benefit: [] Client was engaged participant AEB client listening attentively to others and providing input in group. Attentive during psychoeducation on communication styles. Assisted group with identifying barriers of effective communication which included: ?being put down, cognitive distortions, and mood. Client identified they most often use aggressive communication towards his parents and assertive towards others. Client indicated that he feels he has to be aggressive to get his point across to his parents, but it ends up causing them to not share how they truely feel. Benefited from increased awareness of different communication barriers, styles, and the importance of communicating effectively to improve mental wellness. Will continue IOP tx to increase use of coping skills, increase positive communication, and manage emotions. Narrative Note: []
--- NOTE | 2021-10-14 11:10 | BH.SGPN.GN ---
Behaviors/Verbalizations/Mental Status: [] Client alert and oriented, casually dressed and groomed. Eye contact good. Motor activity appropriate. Speech within normal limits. Affect congruent, mood euthymic and anxious. Thoughts linear, logical, no signs of hallucinations or delusions Client Response/Progress/Benefit: [] Client responded well to session AEB client listening attentively to others and providing input during group discussion on the pay offs and costs of the different communication styles. Client recognizes negative impact on relationships when he doesn't use healthy communication style. Client did well in the activity to be assertive and ask for feedback. Recognizes if group wasn't assertive in activity, they wouldn't have been successful. Attentive during psychoeducation on interpersonal DBT skill JULES. Client set a goal to work on expressing himself with I statements instead of use of You. Client seemed to benefit from increasing awareness of healthy strategies to improve communication. Client will continue IOP tx to improve successful communication, regulate emotions, and reduce symptoms of depression. Narrative Note: []
--- NOTE | 2021-10-14 13:29 | BH.MDN ---
Multi-Disciplinary Note - Note 45-min Individual Time Started:: 12:05 Date: 10/14/21 Purpose of session/treatment goals addressed:: Reviewed current symptoms and progress in PHP. Addressed treatment plan goals 1 and 2. Eye Contact:: Good Motor Activity:: Appropriate Appearance:: Casual Speech:: Rapid, Other - loud voice, which is baseline Mood:: Anxious Affect:: Full Thoughts:: Linear, Logical, No evidence of hallucinations/delusions noted Staff Interventions:: psychoeducation on: - communication skills and anger mgmt., taught coping skills Client Response:: Client presents today in good spirits. He reports that his weekend had some bad moments however he was able to implement coping skills. Reports that his urges to self-medicate his emotions are less and his confidence in managing distress has improved. He tried communication skills discussed during last indv session and noted benefits my mom actually responded well. States I fought my urge to yell till I got what I wanted Insight that his parents often just tell him yes to shut me up and calm him down. While this decreases conflict in the moment it is poor communication and they often never follow through which upsets patient more. He talked about the ways in which he utilized assertive communication, the benefits, and the challenges. He has stressors this afternoon I have to talk to the IRS and he is visibly upset when discussing challenges with his taxes. He was able to normalize and accept that it is normal to be upset. He then identified a plan to complete coping skills before, during and after the call. Also developed plan to distraction and clear his head afterwards. Risks/Concerns:: no risks or concerns noted. Progress Toward Goals/Plan:: Pt reports no suicidal ideations in the past 4 days. His daily symptom tracker this AM indicated no distress. He completed safety plan, developed a concrete list of calming skills to use when overwhelmed, and can identify 5 warning signs to anger and strategies to cope. He reports implementing new skills to improve assertive communication and decrease impulsivity. Pt has met treatment plan goals. Pt feels comfortable stepping down to IOP level of care. Case discussed with treatment team and Dr. Palomo with plan to step down to IOP level of care. Met treatment plan goals, denies SI for past 4 days, and no longer meets criteria for PHP. Due to low frustration tolerance, impulsivity, and chaotic relationship with support he will continue to need structed treatment. Time Stopped:: 12:40
--- NOTE | 2021-10-14 13:35 | BH.DS_ITS ---
Discharge Summary - Demographics Date of Admission:: 10/07/21 Discharge Date: 10/14/21 Presenting Problems at Admission:: Pt is a 26 y/o male with a hx of Bipolar, JAVI, ADHD, Tourette's, and Autism Spectrum Disorder. Previous psychiatric admission to [facility] in 04/2021. Hx of residential treatment as a teenager. Referred to [facility] by his mother and outpatient therapist due to decompensation, erratic mood, depression, and mental health interfering with functioning. Patient has lost 5 jobs in the past few years mainly due to mental health. Recently quit job on 09/26/21 due to overwhelming stress and inability to perform job responsibilities. Mental health decompensation for the past 3 months. Denies active suicidal ideations, plan, or intent. Endorses fleeting suicidal ideations with thoughts of methods for past several months. Its been bad. Reports suicidal ideations with methods and intent 2 weeks ago. Hx of previous suicide attempt in 09/2019 via OD after job loss. Endorses poor sleep, erratic appetite, impulsivity, irritability, anger outbursts, hopelessness, and worthlessness. Rapid cycling. Daily panic attacks. Frequent anger outbursts. Risky behaviors. Has had 50 sexual partners in the past year. Self-medicating with marijuana and kratom. Reports sober from marijuana for 6 prior to intake, however struggling to maintain sobriety. Racing thoughts. Pressured at times. Medication compliant. Limited benefit from traditional outpatient. Denies HI. Mild paranoia. No family hx of mental illness. Due to fleeting SI with methods, daily panic attacks, limited benefit from traditional outpatient, and mental health significantly impacting functioning recommends [facility]. Discharge Diagnoses:: 1. Bipolar 2 disorder. 2. Generalized anxiety disorder. 3. Tourette's, history of OCD, autism. 4. ADHD. 5. Marijuana and kratom use disorders Reason for Discharge:: Completed treatment plan goals. No longer meets criteria for [facility] level of care. - Treatment Progress During Treatment & Response: Responded well to [facility] level of care. Consistent attendance. Engaged in group and individual counseling. He completed safety plan, developed a concrete list of calming skills to use when overwhelmed, and can identify 5 warning signs to anger and strategies to cope. He reports implementing new skills to improve assertive communication and decrease impulsivity. Pt has met treatment plan goals. Pt feels comfortable stepping down to [facility] level of care. Case discussed with treatment team and Dr. Palomo with plan to step down to IOP level of care. Met treatment plan goals, denies SI for past 4 days, and no longer meets criteria for PHP. Due to low frustration tolerance, impulsivity, and chaotic relationship with support he will continue to need structed treatment. Issues Still to be Addressed:: Impulsivity, low frustration tolerance, poor anger mgmt, anxiety, depression, panic attacks, limited support, poor social skills, self-medicates with substances, fleeting SI, and mood instability. Discharge Recommendations/Instructions:: Pt will step down to IOP level of care starting on 10/15/21. Discharge Handout: Complete Discharge Handout with client on aftercare options and continuity of care.
== END 2021-10-14 13:58 | disposition home or self-care (01) ==
LOC: BHPHP 08:00
PROVIDERS: PCP Nurse Practitioner Family; Referring Provider Psychiatry & Neurology Psychiatry; Visit Provider Psychiatry & Neurology Psychiatry
DX: F31.81 Bipolar II disorder (principal); F41.1 Generalized anxiety disorder; F42.9 Obsessive-compulsive disorder, unspecified; F84.0 Autistic disorder; F90.9 Attention-deficit hyperactivity disorder, unspecified type; Z79.899 Other long term (current) drug therapy; E66.9 Obesity, unspecified
CPT/HCPCS: H0035; 90834; 90837; G0410

== ENCOUNTER 2021-10-15 08:41 | Outpatient (RCR) | payer MEDICARE, OTHER, SELFPAY ==
--- NOTE | 2021-10-15 09:00 | BH.SGPN.GN ---
Behaviors/Verbalizations/Mental Status: []Pt alert and oriented, casually dressed and groomed. Eye contact good. Motor activity appropriate. Speech within normal limits. Affect constricted, mood agitated. Thoughts linear, logical, no signs of hallucinations or delusions. Reviewed pt?s symptom tracker, no risk for suicidal ideation, plan, or intent as of 10/15/21 Client Response/Progress/Benefit: [] Pt responded well to session, attentive and offering ideas. Pt reports feeling restless this morning and pt was heavily sweating during session. Pt shared his biggest stressor right now is not having a job and fearing applying for jobs as pt has been fired many times recently. Pt able to see that if he continues to work on managing his mental health this will help pt in the work-force. Pt reflected on coping skills he used recently which included opposite action when he wanted to isolate and talking calmly to his mother when he wanted to lash out and scream. Pt appeared to benefit from reflecting on application of skills. Pt will continue IOP tx to improve distress tolerance, improve daily functioning, and gain healthy coping skills. Narrative Note: []
--- NOTE | 2021-10-15 10:05 | BH.SGPN.GN ---
Behaviors/Verbalizations/Mental Status: [] Client alert and oriented, casually dressed and groomed. Eye contact good. Motor activity appropriate. Speech within normal limits. Affect constricted, mood euthymic. Thoughts linear, logical, no signs of hallucinations or delusions. Client Response/Progress/Benefit: [] Client was an active participant in activity and taking notes during group discussion. Attentive during psychoeducation on coping skills, why people use unhealthy coping skills, and how to replace unhealthy coping skills. Client shared unhealthy coping mechanism of going out and partying instead of dealing with issues head on. Benefited from increased understanding of unhealthy coping skills and the need for developing healthy internal and external coping skills. Client will continue IOP tx to prevent decompensation, regulate emotions, and improve overall functioning. Narrative Note: []
--- NOTE | 2021-10-15 11:05 | BH.SGPN.GN ---
Behaviors/Verbalizations/Mental Status: [] Client alert and oriented, neatly dressed and groomed. Eye contact fair to good. Motor activity appropriate. Speech within normal limits. Affect congruent, mood euthymic. Thoughts linear, logical, no signs of hallucinations or delusions. Client Response/Progress/Benefit: [] Client responded well to session AEB taking notes and providing input and examples throughout. Group discussed the different categories of coping skills which included distraction, emotional release, grounding, self-love, and thought challenging. Client created a coping skill menu identifying various skills to try in each category. Client chose to work on coping skills under emotional release category and increasing validation of his emotions. Appeared to benefit from increasing repertoire of healthy coping skills. Client will continue IOP tx to improve daily functioning, reduce anger reponses, and increase application of healthy coping skills. Narrative Note: []
--- NOTE | 2021-10-16 10:08 | BH.SGPN.GN ---
Behaviors/Verbalizations/Mental Status: []Pt alert and oriented, casually dressed and groomed. Eye contact good. Motor activity appropriate. Speech within normal limits. Affect constricted, mood anxious. Thoughts linear, logical, no signs of hallucinations or delusions Client Response/Progress/Benefit: []Pt responded well to session AEB sharing and listening attentively to others. pt was engaged throughout group discussion defining fixed mindset and what it can look like. Group discussed how fixed mindset affects mental health and why we use fixed thoughts. Pt participated in experiential activity encouraging pts to find solutions to a seemingly impossible task. Pt identified personal fixed thoughts in session which included ?I?ll never hold a job, I?ll never live a fulfilling life, and I?ll always have to self-medicate. Pt gained awareness that these thoughts are all absolutes that feel true, but are distortions. Pt appeared to benefit from increased knowledge of fixed mindset and self-awareness of personal fixed thoughts. Will continue IOP tx to prevent decompensation, gain healthy coping skills, and improve overall functioning.? Narrative Note: []
--- NOTE | 2021-10-16 10:30 | BH.COMM_ITS ---
Communication Note - Communication with Client Communication Note: Left after 1st group. Was scheduled to meet with psych iatrist today. Patient made aware and encouraged to stay
--- NOTE | 2021-10-16 10:30 | BH.COMM ---
Communication Note - Communication with Client Communication Note: Left after 1st group. Was scheduled to meet with psychiatrist today. Patient made aware and encouraged to stay
--- NOTE | 2021-10-16 10:50 | BH.MDN_ITS ---
Multi-Disciplinary Note - Note 45-min Individual Time Started:: 09:15 Date: 10/16/21 Purpose of session/treatment goals addressed:: Reviewed current symptoms and progress in IOP. Reviewed treatment plan from [facility] level of care and began to discuss goals for [facility] level of care. Eye Contact:: Good Motor Activity:: Appropriate Appearance:: Casual Speech:: Appropriate Mood:: Anxious, Depressed Affect:: Congruent Thoughts:: Linear, Logical, No evidence of hallucinations/delusions noted Staff Interventions:: mindfulness skills, treatment planning, taught coping skills Client Response:: Pt reports that he had the worst panic attack ever last night. States that he was sweating, shaking, and vomitted due to his anxiety. Reports that while in the panic attacks he had thoughts of I just want to . He reports that he was unable to utilize PRN medication because I would have thrown it up and didn't attempt coping skills because I was too far gone. He choose to smoke weed I took 2 puffs and I was fine. He views this as a win b/c he only took 2 puffs and didn't continue to self-medicate with an edible or Kratum, which he did last week after crisis event with parents. He originally was unable to identify any trigger to the panic attack however after several questions he believes that trigger was looking for a job, ruminating on his past failures, and believing that he will never be able to maintain a job. These thoughts led to attacks. We processed this and he was able to strategies to implement if/when he begin to job search again. Encouraged him to utilize his physiological warning signs as indicators to implement skills. I have our list taped up in my bedroom. We developed a plan for the rest of the day as well as he reports feeling down today. Set up times throughout the day to practice m indfulness, self-care, reframing, and distraction. Risks/Concerns:: No risks or concerns today. Progress Toward Goals/Plan:: Pt reports progress as he only needed 2 puffs of weed to manage significant panic. Concern that he choose weed instead of PRN medication or attempt to utilize coping skills, however pt does see progress in self-medicating less than in the past. He escalated quickly last evening prior to attack and struggle to identify trigger. Does well with therapist processing the day after however again struggles in the moment. Reviewed warning signs, importance of self-care and skills practicing throughout the day and prior to intense emotions. Encouraged use of PRN medications instead of weed. Will continue in IOP to maintain safety, stabilize mood, and prevent decompensation. Time Stopped:: 10:00
--- NOTE | 2021-10-16 11:10 | BH.SGPN.GN ---
Behaviors/Verbalizations/Mental Status: [] Eye contact is good. Motor activity is appropriate. Appearance is casual. Speech is Appropriate. Mood is anxious. Affect is congruent. Thoughts are linear and logical. No evidence of psychosis. Client Response/Progress/Benefit: [] Pt was an active participant in group discussion. Participated in their small group and was attentive during group psychoeducation on growth mindset vs fixed mindset. Pt and peers identified and shared examples of growth mindset which included; things can change, situations can improve, feedback whether positive or negative can be helpful, etc. Pt participated in interactive discussion and practiced changing a fixed mindset thought to a growth mindset thought. Pt has several fixed mindset thoughts mainly revolving around the idea that I can't do it and Its always going to be like this. Able to identify growth mindset examples as I can't do things yet but I'm learning. Benefited from increased awareness and insight of growth mindset and strategies to change from fixed mindset thoughts to growth mindset thoughts. Plan to continue in IOP to prevent decompensation, increase healthy coping strategies, and maintain safety. Narrative Note: []
--- NOTE | 2021-10-16 11:56 | PCM.BH.PN ---
Progress Note Progress Note: History of Present Illness/Interim History: [] The patient is a 26-year-old single male with a history of bipolar 2 disorder, anxiety, ADHD, Tourette's, OCD and autism who is seen in follow-up at the [facility] behavioral health IOP program. I last saw the patient 1 week ago when he was in the partial hospitalization program. He continues to make progress and states that he is enjoying the IOP program although he feels it is hard work working on his mental health issues. He feels he is really learning valuable skills that he learned when he did IOP in the past but had forgotten about. His mood remains much improved and he is now relatively euthymic. He denies any symptoms of jerome. His sleep remains about 8 or 9 hours a week and his energy level and concentration are now good. He still worries but he has not had any panic attacks. He denies passive thoughts of , suicidal ideation, plan for suicide, homicidal ideation, hallucinations or delusions. He denies any purging or eating disorder symptoms also. He states that he is in communication with his psychiatrist as he desires to decrease his Adderall dose. He used kratom only 1 time sent in the past week. He denies any other drug use. Current Psychiatric Medications: [] Medications are unchanged from initial visit. Mental Status Examination: [] The patient is a 26-year-old male who appears normal for stated age and is casually dressed and groomed with good hygiene. He is pleasant and cooperative during the interview. He has no psychomotor agitation or retardation. He is ambulatory with a normal gait. Eye contact is good and speech is normal rate and rhythm and fluent with no pressure. Mood is euthymic. Affect is full and normal. Thought process is goal-directed and organized. Thought content: The patient is hopeful that he is learning valuable skills in the IOP program. There is no evidence of passive thoughts of , suicidal ideation, plan for suicide, homicidal ideation, hallucinations or delusions. Reality testing is intact. Intelligence is above average or average. Judgment is intact. Insight is limited but improving. Diagnoses: [] 1. Bipolar 2 disorder 2. Generalized anxiety disorder 3. Tourette's, history of OCD, mild autism 4. ADHD 5. Marijuana and kratom use disorders 6. Primary support, work issues Plan: [] The patient will be stepdown from the [facility] program to the IOP program as his condition has improved. He felt safe during the interview and if it anytime he does not feel safe he will let us know or go to the emergency room. The risks, options, possible complications and side effects of the medications were again discussed with the patient and he understands and accepts these. He understands that he should stop using kratom as it is dangerous and has complications that far outweigh any possible remote benefits of it. He agrees also to not use any other substances and will continue to stay off marijuana. He plans to see if decreasing his stimulant helps with his mild tremor. He understands that lithium can cause a tremor and Wellbutrin can also exacerbate tremor. Patient feels his tremor occurred after the Adderall dose was increased. He is encouraged also again to wean off of his benzodiazepine slowly. He will follow-up with his outpatient providers and I will see the patient in follow-up in several weeks.
--- NOTE | 2021-10-16 12:05 | BH.DR.ITP ---
Initial Treatment Plan Patient Information Visit Information: ADMISSION DATE: EXPECTED LOS: 4-6 weeks Problems/Symptoms Problem #1:: Mood instability Symptom:: Recent history of depression, anger, irritability, rapid cycling of moods, risky behavior, impulsivity, recent fleeting suicidal ideation, hopelessness and worthlessness Problem #2:: Anxiety Symptom:: Worry, panic attacks
--- NOTE | 2021-10-16 14:55 | BH.MTP_ITS ---
Master Treatment Plan - Patient Information Program Physician:: Ceci Perkins Primary Therapist:: Eladio Carcamo - Psychiatric Diagnoses Psychiatric Diagnoses:: 1. Bipolar 2 disorder. 2. Generalized anxiety disorder. 3. Tourette's, history of OCD, mild autism. 4. ADHD. 5. Marijuana and kratom use disorders Diagnosis Code(s):: F31.81 - Estimated LOS Estimated LOS (in weeks):: 6 Problem/Goal #1 - Problem/Goal #1 Stated Goal:: Achieve controlled behavior, moderated mood, more deliberative speech and thought process, and a stable daily activity pattern. Client will also increase mood stability, reduce depression, and reduce suicidal thoughts due to Bipolar disorder through the Intensive Outpatient Program AEB reduction of scores on the jerome, depression, and anger domains of the DSM-5 outcomes and self-report Description of Barriers: impulsivity, low frustration tolerance, limited support, unhealthy coping skills, limited coping skills, poor emotion regulation. Functional Impact: Recently lost job due to mood instability. Mood instability has negatively impacted relationships. Mood instability is trigger to self- medicate. Goal Relevant Strengths/Supports: appears motivated, willing to learn. - Objectives Objective #1 Stated Objective: List the negative consequences that accrue to self and others as a result of impulsive behavior. Interventions: Through individual and group counseling will assist the client in making connections between his/her impulsivity and the negative consequences for himself/herself and others. Discharge Criteria: Pt will be able to list at least 10 consequences to his impulsive behaviors over the course of the previous 6 weeks. Target Date: 11/15/21 Review Date: 11/13/21 Objective #2 Stated Objective: Identify and replace negative thinking patterns that mediate feelings of hopelessness, anger, regret, and worthlessness. Interventions: Ask the client to keep a daily record of self-defeating thoughts (thoughts of hopelessness, helplessness, worthlessness, catastrophizing, nega tively predicting the future); challenging each thought for accuracy, then replace each dysfunctional thought with one that is positive and self-enhancing; review; reward successes; problem-solve obstacles toward positive cognitive change. Discharge Criteria: Will be able to identify 3 negative and self-defeating thinking patterns and be able to replace with more realistic and encouraging thoughts. Target Date: 11/15/21 Review Date: 11/13/21 Problem/Goal #2 - Problem/Goal #2 Stated Goal:: Client will reduce overall frequency, intensity, and duration of anxiety to improve functioning AEB reduction of scores on the anxiety domain of the DSM-5 outcomes as well as self-report Description of Barriers: Impulsivity, low frustration tolerance, limited support, unhealthy coping skills, limited coping skills, poor emotion regulation . Functional Impact: inability to manage anxiety has resulted in decreased overall functioning and contributes to mood instability. Goal Relevant Strengths/Supports: Appears motivated, willing to learn. - Objectives Objective #1 Stated Objective: Client will identify 2-3 cognitive distortions that lead to rumination, anxiety, and panic. Will learn 2-3 ways to manage these distortions to better manage anxiety. Interventions: Through individual and group counseling will provide education on the most common cognitive distortions and teach client the connection between thoughts, emotions, and feelings. Discharge Criteria: Will be able to identify 2-3 common cognitive distortions and consistently implement skills to challenge and reframe thoughts associated with each distortion. Target Date: 11/15/21 Review Date: 11/13/21 Objective #2 Stated Objective: Pt's lack of close relationships causes significant distress, worry, and anxiety. Client will increase self-awareness and interpersonal effectiveness skills to improve relationships. Interventions: Through individual and group counseling client will learn 2-3 techniques to better manage interpersonal relationships. Discharge Criteria: Pt will be able to identify at least 3 new interpersonal skills and self-report improved relationship with primary support. Target Date: 11/15/21 Review Date: 11/13/21
--- NOTE | 2021-10-21 10:05 | BH.SGPN.GN ---
Behaviors/Verbalizations/Mental Status: []Pt alert and oriented, casually dressed and groomed. Eye contact good. Motor activity appropriate. Speech within normal limits. Affect congruent, mood euthymic. Thoughts linear, logical, no signs of hallucinations or delusions. Client Response/Progress/Benefit: []Pt attentive during psychoeducation and participated in group activity. Participated in interactive group discussion on internal and external barriers to mental health progress. Group identified examples of internal barriers as; negative thoughts, anxiety, cognitive distortions, and past experiences. Pt trista a picture of their current reality which pt described as like I'm floating on an island that's decaying and I'm going to fall into monsters and I have support, but I'm not sure how to talk to them. Pt also trista their desired reality which pt described as my island is no longer decaying and I'm still struggling with the monsters, but I'm able to use my coping skills and supports. Benefited from increased awareness of current barriers to progress as well as current/desired realities.Pt will continue IOP tx to prevent decompensation, improve distress tolerance skills, and reduce impulsivity. Narrative Note: []
--- NOTE | 2021-10-21 10:12 | BH.MDN_ITS ---
Multi-Disciplinary Note - Note 45-min Individual Time Started:: 09:15 Date: 10/21/21 Purpose of session/treatment goals addressed:: Reviewed current symptoms and progress. Addressed treatment plan goals 1 and 2. Eye Contact:: Fair Motor Activity:: Restless Appearance:: Casual Speech:: Appropriate Mood:: Anxious, Irritable Affect:: Congruent Thoughts:: Linear, Logical, No evidence of hallucinations/delusions noted Staff Interventions:: mindfulness skills, goal setting - Set goal to practice mindfulness and coping skills once every two hours during the day, taught coping skills Client Response:: Pt reports that this weekend was bad. Continued trigger and stressor is relationship with his parents. Pt has very rigid and concrete thinking and his parents appear to struggle with following through with their promises. Pt had an anxiety and anger outburst on Thursday b/c his parents were unable to meet him at their house at 12pm which they had promised before. Pt was driving over when he got the news which messed up his whole day. Pt feels comfortable in routines. Had overwhelming anger while at the gas station and ended up flicking off and yelling obscenities' and and random person. I needed to get my anger out. Incongruent affect as pt was smiling when re- telling these events. Limited insight that he was placing himself in significant danger. He left the gas station and then self-medicated with 5 puffs of weed through vape pen and ate 2 edibles. Appears that he also self-medicated on Thursday as well. I don't want to do this but I'm so overwhelmed. I have nothing else to do. Therapist reminded him of coping skills list, crisis management plan, and numerous other healthy options. He always states that it was beyond that. Aftrer processing the events, his thoughts, and his actions he has insight that coping skills and self-care are preventative strategies to manage anxiety. He agreed to practice and use these skills at least once an hour. Risks/Concerns:: denies any SI over the weekend. No risks of concerns currently. Progress Toward Goals/Plan:: Regression since last week. Pt had been making progress and utilizing skills more effectively last week. He is self-medicating more and is not attempting to use healthy coping strategies when in distress. Will focus more on thought reframing and challenging while in IOP. Pt's thinking is very concrete and rigid so this may be very difficult, however if he does not implement coping skills when distressed or for prevention it would be jones to perhaps decrease intensity of the thoughts (when triggered) to better manage emotions and behaviors. Will continue in IOP to stabilize mood, prevent decompensation, and increase healthy coping. Time Stopped:: 10:00
--- NOTE | 2021-10-21 11:10 | BH.SGPN.GN ---
Behaviors/Verbalizations/Mental Status: [] Eye contact is good. Motor activity is appropriate. Appearance is casual. Speech is Appropriate. Mood is anxious. Affect is congruent. Thoughts are linear and logical. No evidence of psychosis. Client Response/Progress/Benefit: [] Pt was an active participant in group discussions. Attentive during psychoeducation. Engaged in experiential group activity. Able to identify barriers to desired reality which include: rely on old ways to cope that don't help, self-medication, don't use coping skills when I should. Participated as group brainstormed ideas on how to cope with internal barriers that can keep individuals stuck. Benefited from group by identifying obstacles and solutions to desired reality.? Will continue in IOP to prevent decompensation, increase use of healthy coping skills, decrease impulsivity and anger. Narrative Note: []
--- NOTE | 2021-10-22 09:05 | BH.SGPN.GN ---
Behaviors/Verbalizations/Mental Status: [] Eye contact is poor. Motor activity is appropriate. Appearance is casual. Speech is loud. Mood is anxious/irritable. Affect is congruent. Thoughts are linear and logical. No evidence of psychosis. Reviewed daily check in sheet and no reports of suicidal ideations or intent. Client Response/Progress/Benefit: [] Pt participated only when prompted. Attentive. Did not provide any feedback. Daily symptom tracker notes no distress today as he marked 0/5 for all categories, however when asked emotion for today reports irritable. When asked to elaborate he states I don't know. Reports [employer] win as applying for job last night which in the past has been a trigger to anxiety, stress, and bad memories. He also has some type of meeting this afternoon with [employer]. He could not elaborate or provide any details on this except to say that he is going with his mother which is anxiety-producing. Limited progress noted. Benefited from support and encouragement from peers. Will continue in [facility] to provide support, prevent decompensation, and increase healthy coping skills. Narrative Note: []
--- NOTE | 2021-10-22 10:15 | BH.SGPN.GN ---
Behaviors/Verbalizations/Mental Status: [] Client alert and oriented, casually dressed and groomed. Eye contact good. Motor activity tics Speech within normal limits. Affect incongruent, mood anxious. Thoughts linear, logical, no signs of hallucinations or delusions. Client Response/Progress/Benefit: [] Client responded well to session AEB sharing and listening attentively to others. Group provided examples of benefits of having social support, including: validation, increased confidence, and better mental health. Client also participated in group discussion regarding the barriers to accessing support including personal example of supports being unavailable or too busy. Client participated in experiential activity illustrating the impact communication, boundaries, and patience play in creating healthy support systems. Client appeared to benefit from increased knowledge of the benefits of social support and greater self-awareness. Will continue IOP tx to prevent decompensation, reduce negative self-talk, and improve overall functioning. Narrative Note: []
--- NOTE | 2021-10-22 11:15 | BH.SGPN.GN ---
Behaviors/Verbalizations/Mental Status: [] Client alert and oriented, casually dressed and groomed. Eye contact good. Motor activity tics. Speech within normal limits. Affect incongruent, mood anxious. Thoughts linear, logical, no signs of hallucinations or delusions. Client Response/Progress/Benefit: [] Client was an active participant throughout AEB contributing to discussion, providing personal examples, and taking notes. Client processed emotions felt in the activity and how they coped in the moment. Client provided input during discussion on the types of support our supports can provide. Client able to identify current support system and barriers that get in the way of using supports by drawing out their own support net. Client reported after identifying what type of supports he receives, he gained awareness that he could benefit from more social supports. Client identified steps to achieve this by going to events, ask for contact info once meeting new people, and go slow. Client shared increasing social supports will help him by having another outlet. Client seemed to benefit from identifying the type of support client needs to work on improving. Client recommended to continue IOP tx to prevent decompensation, reduce isolation, and increase emotional regulation skills. Narrative Note: []
--- NOTE | 2021-10-23 08:47 | BH.COMM_ITS ---
Communication Note - Communication with Client Communication Note: Pt left a message at 11pm on 10/22/21 which was concerning. Pt was crying and stated that he wasn't coming into the program tomorrow and may never see us again. This was concerning as pt had never missed an appointment and sounded in significant distress on the phone. Attempted to call patient 2x with no answer. Staff called emergency contact and spoke with pt's father. He reports that parents refused to give him money last night and pt had an anger o utburst and sped off in his truck. Father reports that this behavior is common if patient doesn't get what he wants and stated that pt texted them profanities around 12am and they have not heard from him since. Father reports when pt is upset he will often yell, scream, destroy property, and make suicidal statements. He is unsure if pt verbalized SI yesterday. Based on information called [employer] for a wellness check. Patient did later call back stating that he was safe. Irritable on the phone. Informed him about our concerns and reason for calling for wellness check. States I never gave you my real address. He had given us his parents address however I was able to obtain his current address from his parents. I repeated his address to him and again informed him that wellness check was called. Informed [facility] that I had spoken with pt and we was both safe and not suicidal. Per protocol they must follow up.
--- NOTE | 2021-10-23 12:09 | BH.COMM ---
Communication Note - Communication with Client Communication Note: Pt left message this afternoon stating that he is not returning to the program. Appears like wellness check was completed by [facility]. Initially VM was pt calming stating that he is choosing not to return however became more irritable towards the end and called this therapist a octavio psycho for requesting a wellness check. He blamed his parents for his behaviors yesterday as it appears that they had called the police or police were present when he was at his parent's house yesterday due to his anger/threatening behavior. Pt will be discharged at his request. Refer to discharge summary for more information.
--- NOTE | 2021-10-23 12:17 | BH.DS_ITS ---
Discharge Summary - Demographics Date of Admission:: 10/15/21 Discharge Date: 10/23/21 Presenting Problems at Admission:: Pt is a 26 y/o male with a hx of Bipolar, JAVI, ADHD, Tourette's, and Autism Spectrum Disorder. Previous psychiatric admission to [facility] in 04/2021. Hx of residential treatment as a teenager. Referred to [facility] by his mother and outpatient therapist due to decompensation, erratic mood, depression, and mental health interfering with functioning. Patient has lost 5 jobs in the past few years mainly due to mental health. Recently quit job on 09/26/21 due to overwhelming stress and inability to perform job responsibilities. Mental health decompensation for the past 3 months. Denies active suicidal ideations, plan, or intent. Endorses fleeting suicidal ideations with thoughts of methods for past several months. Its been bad. Reports suicidal ideations with methods and intent 2 weeks ago. Hx of previous suicide attempt in 09/2019 via OD after job loss. Endorses poor sleep, erratic appetite, impulsivity, irritability, anger outbursts, hopelessness, and worthlessness. Rapid cycling. Daily panic attacks. Frequent anger outbursts. Risky behaviors. Has had 50 sexual partners in the past year. Self-medicating with marijuana and kratom. Reports sober from marijuana for 6 prior to intake, however struggling to maintain sobriety. Racing thoughts. Pressured at times. Medication compliant. Limited benefit from traditional outpatient. Denies HI. Mild paranoia. No family hx of mental illness. Due to fleeting SI with methods, daily panic attacks, limited benefit from traditional outpatient, and mental health significantly impacting functioning pt was admitted to [facility] level of care. He completed [facility] level of care and stepped down to [facility] on 10/15/21. Discharge Diagnoses:: 1. Bipolar 2 disorder. 2. Generalized anxiety disorder. 3. Tourette's, history of OCD, autism. 4. ADHD. 5. Marijuana and kratom use disorders Reason for Discharge:: Pt called and left at 11pm on 10/22/21 crying hysterically. On the VM he stated that he was not going to be attending the program today and that we may never see him again. The latter part of the statement was concerning and could be interpreted as a suicidal statement especially considering his volatile mood, low frustration tolerance, and fleeting SI with thoughts in the recent weeks. Attempted to call pt 2x in AM however no answer, called his emergency contact which is his parents. Spoke with father who reports that pt was very upset last night due to parents refusing to give him money. Father reports that pt sped away in his truck and was verbally aggressive to parents. Father reports this is common behavior and pt often destroys property, threatens to hurt parents, and threatens suicide. Father was not sure if pt verbalized SI on 10/22/21. Wellness check was initiated through [facility]. Pt called back in the afternoon and left calling [facility] [place] staff maurilioking carol for calling a wellness check and used obscenities' and threatening language towards [facility] staff. Pt was very angry towards [facility] [place] staff. In this message he requested to be discharged from the program. He later called back and stated that his mom wants him to get back in the program. Case was discussed with treatment team. Concerns regarding his volatile mood, threats towards staff, and the safety of both staff and other patients in IOP/[facility] programs. Treatment team agreed that pt should be discharged and given referrals to other [facility] and [facility]. Primary clinical concern may be best managed by collection support specialist as his difficulty regulating emotions, poor social skills, rigid expectations and routines, distress at smallest change, difficulty interpreting what others are thinking/feeling, and limited social awareness may be the the primary factors impacting his depression, mood instability, inability to maintain employment, and lack of close relationships. This therapist called pt back to discuss events last night and this afternoon. Denies that he was suicidal stating I just had a bad night ... I get like this every 2 weeks. Therapist informed him that he was discharged and would not be re-admitted. He was upset and continued again with obscenities' and threatening language. Blamed all of his issues on others (parents, treatment professionals, etc) and refused to accept any responsibility for his role in his anger. Pt states I'm going to show up on Thursday that's just how it is. Encouraged him not show up to [facility] as this would lead to police being called. He then tried to bargain with therapist and minimized his language I do this all the time when I'm upset. After he calmed we discussed referrals options above which he choose to be emailed to him. - Treatment Progress During Treatment & Response: Pt made some initial progress while in [facility] level of care and was later stepped down to [facility]. Since stepping down to [facility] his progress has been inconsistent and he struggles with implementing healthy coping skills choosing instead to self-medicate with marijuana. His attendance was consistent however was often distracted and disengaged in group settings. His frustration tolerance is very low and reported smoking marijuana almost everyday since entering [facility]. He has no desire to stop smoking weed as he feels that this is most effective way to manage his anger and emotional distress. Despite benefiting from utilizing assertive and appropriate communication skills with parents he has resorted back to yelling and threatening when he doesn't get his way. Despite initially benefiting from implementing mindfulness skills, healthy distraction, self-care, and other coping strategies in the past week he has chosen not to even try these skills when in distress. Issues Still to be Addressed:: Low frustration tolerance, anger outbursts, addiction, aggressive communication with support, anxiety, impulsivity, poor social skills, difficulty regulating emotions, rigid expectations and routines, distress at smallest change, difficulty interpreting what others are thinking/feeling, and limited social awareness may be the the primary factors impacting his depression, mood instability, inability to maintain employment, and lack of close relationships. Discharge Recommendations/Instructions:: Pt is currently linked with psychiatrist Dr. Sana Carvajal with appointment in 2 weeks. All clinical information was faxed to her. Pt also is linked with therapist at [facility]. He was also given referrals to [facility] programs as well as [facility]. Due to threatening language towards [facility] [place] staff he will not be allowed back to our pro gram for the safety of staff and patients. Discharge Handout: Complete Discharge Handout with client on aftercare options and continuity of care.
== END 2021-10-24 08:36 | disposition home or self-care (01) ==
LOC: BHIOP 08:41
PROVIDERS: PCP Nurse Practitioner Family; Visit Provider Psychiatry & Neurology Psychiatry
DX: F31.81 Bipolar II disorder (principal); F41.1 Generalized anxiety disorder; F95.2 Tourette's disorder; F42.9 Obsessive-compulsive disorder, unspecified; F84.0 Autistic disorder; F90.9 Attention-deficit hyperactivity disorder, unspecified type; F12.99 Cannabis use, unspecified with unspecified cannabis-induced disorder; F19.99 Other psychoactive substance use, unspecified with unspecified psychoactive substance-induced disorder; Z79.899 Other long term (current) drug therapy
CPT/HCPCS: S9480; 90834; 90853

== ENCOUNTER → 2022-03-27 | Outpatient (CLI) | payer OTHER, MEDICARE, MEDICAID, SELFPAY | END | disposition home or self-care (01) | PROVIDERS: PCP Nurse Practitioner Family; Visit Provider Student in an Organized Health Care Education/Training Program | DX: F42.9 Obsessive-compulsive disorder, unspecified (principal); F95.2 Tourette's disorder; F90.9 Attention-deficit hyperactivity disorder, unspecified type; F84.0 Autistic disorder | CPT/HCPCS: 36415; 80178 ==

== ENCOUNTER 2022-08-12 11:55 | Outpatient (CLI) | payer MEDICARE, MEDICAID, SELFPAY ==
[2022-08-12 12:38] LABS: Absolute Lymphocyte Count 1.78 X10^3/uL (0.83-4.51); Absolute Neutrophil Count 5.5 X10^3/uL (2.0-7.7); Basophil# 0.04 X10^3/uL; Basophil% 0.5 % (0-1); Eosinophil# 0.11 X10^3/uL; Eosinophils% 1.4 % (0-5); Hematocrit 43.3 % (40-54); Hemoglobin 13.9 g/dL (13.0-16.5); Lymphocyte # 1.78 X10^3/ul (0.83-4.51); Lymphocyte % 22.4 % (19-41); Mean Corp Hgb Conc 32.1 g/dL (32-36); Mean Corpuscular Hgb 30.7 pg (27.0-32.0); Mean Corpuscular Volume 95.6 fL (80-94); Mean Platelet Vol. 9.9 fl (6.2-12.0); Monocyte# 0.48 X10^3/uL; NRBC Flagged by Analyzer 0 % (0-5); Neutrophil # 5.49 X10^3/uL (2.7-7.7); Neutrophil % 69.2 % (47-70); Platelet Count 270 K/mm3 (150-450); RBC Distribution Width CV 12.5 % (11.6-14.6); RBC Distribution Width SD 44.2 fl (35.1-43.9); Red Blood Count 4.53 M/mm3 (4.6-6.2); White Blood Count 7.9 K/mm3 (4.4-11.0)
[2022-08-12 13:29] LABS: ALB/GLOB Ratio 1.1 RATIO (0.9-2.4); AST(SGOT) 16 U/L (15-37); Alanine Aminotransfer ALT/SGPT 36 U/L (16-61); Albumin, Serum 3.7 g/dL (3.2-5.0); Alkaline Phosphatase 52 U/L (45-117); Anion Gap 7 (5-15); BUN 28 mg/dL (7-18); BUN/Creat Ratio 38.3 RATIO (10-20); Calcium,Total 9.2 mg/dL (8.5-10.1); Chloride 109 mmol/L (98-107); Creatinine, Serum 0.73 mg/dL (0.70-1.30); EST Glomerular Filtration Rate 138 mL/min (>60); Est Glom Filt Rate - Afr Amer 167 mL/min (>60); Globulin 3.5 g/dL (2.2-4.2); Glucose 112 mg/dL (74-106); Potassium 4.2 mmol/L (3.5-5.1); Protein, Total 7.2 g/dL (6.4-8.2); Sodium Level 141 mmol/L (136-145); Thyroid Stim Hormone (TSH) 2.34 uIU/mL (0.358-3.74)
[2022-08-12 17:22] LABS: Vitamin B12 490 pg/mL (211-911); Vitamin D,25 Hydroxy 38.5 ng/mL
== END 2022-08-12 23:59 | disposition home or self-care (01) ==
LOC: BIMLAB 11:56
PROVIDERS: PCP Nurse Practitioner Family; Visit Provider Nurse Practitioner Family
DX: M25.50 Pain in unspecified joint (principal); R76.8 Other specified abnormal immunological findings in serum; E56.9 Vitamin deficiency, unspecified; R53.83 Other fatigue
CPT/HCPCS: 36415; 80053; 82306; 82607; 84443; 85025

== ENCOUNTER → 2022-12-24 | Outpatient (CLI) | payer MEDICARE, MEDICAID, SELFPAY ==
[2022-12-24 17:42] LABS: Absolute Lymphocyte Count 2.36 X10^3/uL (0.83-4.51); Absolute Neutrophil Count 6.2 X10^3/uL (2.0-7.7); Basophil# 0.04 X10^3/uL; Basophil% 0.4 % (0-1); Eosinophil# 0.07 X10^3/uL; Eosinophils% 0.8 % (0-5); Hematocrit 45.4 % (40-54); Hemoglobin 14.9 g/dL (13.0-16.5); Lymphocyte # 2.36 X10^3/ul (0.83-4.51); Lymphocyte % 25.9 % (19-41); Mean Corp Hgb Conc 32.8 g/dL (32-36); Mean Corpuscular Hgb 29.6 pg (27.0-32.0); Mean Corpuscular Volume 90.1 fL (80-94); Mean Platelet Vol. 10.3 fl (6.2-12.0); Monocyte# 0.47 X10^3/uL; Monocyte% 5.2 % (0-10); NRBC Flagged by Analyzer 0 % (0-5); Neutrophil # 6.17 X10^3/uL (2.7-7.7); Neutrophil % 67.6 % (47-70); Platelet Count 288 K/mm3 (150-450); RBC Distribution Width CV 12.3 % (11.6-14.6); RBC Distribution Width SD 39.9 fl (35.1-43.9); Red Blood Count 5.04 M/mm3 (4.6-6.2); White Blood Count 9.1 K/mm3 (4.4-11.0)
[2022-12-24 17:58] LABS: ALB/GLOB Ratio 1.4 RATIO (0.9-2.4); AST(SGOT) 17 U/L (15-37); Alanine Aminotransfer ALT/SGPT 29 U/L (16-61); Albumin, Serum 4.4 g/dL (3.2-5.0); Alkaline Phosphatase 67 U/L (45-117); Anion Gap 6 (5-15); BUN 15 mg/dL (7-18); BUN/Creat Ratio 21.3 RATIO (10-20); Calcium,Total 9.3 mg/dL (8.5-10.1); Chloride 109 mmol/L (98-107); EST Glomerular Filtration Rate 143 mL/min (>60); Est Glom Filt Rate - Afr Amer 174 mL/min (>60); Ferritin 48 ng/mL (26-388); Globulin 3.2 g/dL (2.2-4.2); Glucose 88 mg/dL (74-106); Iron 49 ug/dL (65-175); Protein, Total 7.6 g/dL (6.4-8.2); Sodium Level 141 mmol/L (136-145)
[2023-01-04 14:07] LABS: B. henselae IgG Negative titer (Neg:<1:320); B. henselae IgM Negative titer (Neg:<1:100); B. quintana IgG Negative titer (Neg:<1:320); B. quintana IgM Negative titer (Neg:<1:100); CMV Acute Antibody IgM < 30.0 AU/mL (0.0-29.9); CMV Antibody IgG < 0.60 U/mL (0.00-0.59); EBV Acute VCA IgM < 36.0 U/mL (0.0-35.9); EBV Nuclear Antigen IgG < 18.0 U/mL (0.0-17.9); EBV-VCA IgG < 18.0 U/mL (0.0-17.9); Lyme IgG P18 Ab Absent (.); Lyme IgG P23 Ab Absent (.); Lyme IgG P28 Ab Absent (.); Lyme IgG P30 Ab Absent (.); Lyme IgG P39 Ab Absent (.); Lyme IgG P41 Ab Absent (.); Lyme IgG P45 Ab Absent (.); Lyme IgG P58 Ab Absent (.); Lyme IgG P66 Ab Absent (.); Lyme IgG P93 Ab Absent (.); Lyme IgG WB Interpretation Negative (.); Lyme IgM P23 Ab Absent (.); Lyme IgM P39 Ab Absent (.); Lyme IgM P41 Ab Absent (.); Lyme IgM WB Interpretation Negative (.)
== END | disposition home or self-care (01) ==
PROVIDERS: PCP Nurse Practitioner Family; Visit Provider Nurse Practitioner Family
DX: F42.9 Obsessive-compulsive disorder, unspecified (principal); M35.07 Sjogren syndrome with central nervous system involvement; F95.1 Chronic motor or vocal tic disorder; R76.0 Raised antibody titer; G89.29 Other chronic pain; G31.84 Mild cognitive impairment of uncertain or unknown etiology; R61 Generalized hyperhidrosis; H93.233 Hyperacusis, bilateral; R06.00 Dyspnea, unspecified
CPT/HCPCS: 80053; 82728; 83540; 85025; 86611; 86617; 86644; 86645; 86664; 86665

== ENCOUNTER → 2023-01-16 | Outpatient (CLI) | payer MEDICARE, MEDICAID, SELFPAY ==
[2023-02-04 15:08] LABS: B. henselae IgG Negative titer (Neg:<1:320); B. henselae IgM Negative titer (Neg:<1:100); B. quintana IgG Negative titer (Neg:<1:320); B. quintana IgM Negative titer (Neg:<1:100); Lyme IgG P18 Ab Absent (.); Lyme IgG P23 Ab Absent (.); Lyme IgG P28 Ab Absent (.); Lyme IgG P30 Ab Absent (.); Lyme IgG P39 Ab Absent (.); Lyme IgG P41 Ab Present (.); Lyme IgG P45 Ab Absent (.); Lyme IgG P58 Ab Absent (.); Lyme IgG P66 Ab Absent (.); Lyme IgG P93 Ab Absent (.); Lyme IgG WB Interpretation Negative (.); Lyme IgM P23 Ab Absent (.); Lyme IgM P39 Ab Absent (.); Lyme IgM P41 Ab Absent (.); Lyme IgM WB Interpretation Negative (.)
== END | disposition home or self-care (01) ==
PROVIDERS: PCP Nurse Practitioner Family; Visit Provider Nurse Practitioner Family
DX: F42.9 Obsessive-compulsive disorder, unspecified (principal); R76.0 Raised antibody titer; G31.84 Mild cognitive impairment of uncertain or unknown etiology; H93.233 Hyperacusis, bilateral; Z77.120 Contact with and (suspected) exposure to mold (toxic)
CPT/HCPCS: 36415; 86611; 86617

== ENCOUNTER → 2023-01-26 | Outpatient (CLI) | payer MEDICARE, MEDICAID, SELFPAY | END | disposition home or self-care (01) | LOC: SL 20:20 | PROVIDERS: PCP Nurse Practitioner Family; Referring Provider Internal Medicine Critical Care Medicine; Visit Provider Internal Medicine Critical Care Medicine | DX: G47.10 Hypersomnia, unspecified (principal) | CPT/HCPCS: 95810 ==

== ENCOUNTER → 2023-01-27 | Outpatient (CLI) | payer MEDICARE, MEDICAID, SELFPAY ==
[2023-01-27 12:45] LABS: CRP < 2.90 mg/L (0.0-3.0)
[2023-01-27 12:47] LABS: Progesterone Level 0.84 ng/mL (See Comment)
[2023-02-01 00:06] LABS: Estrogen, Total, Serum 199 pg/mL (56-213)
== END | disposition home or self-care (01) ==
LOC: LAB 12:01
PROVIDERS: PCP Nurse Practitioner Family; Visit Provider Nurse Practitioner Family
DX: F42.9 Obsessive-compulsive disorder, unspecified (principal); B37.81 Candidal esophagitis; M35.07 Sjogren syndrome with central nervous system involvement; F95.1 Chronic motor or vocal tic disorder; R76.0 Raised antibody titer; G89.29 Other chronic pain; G31.84 Mild cognitive impairment of uncertain or unknown etiology; R61 Generalized hyperhidrosis; H93.233 Hyperacusis, bilateral; L65.8 Other specified nonscarring hair loss; Z77.120 Contact with and (suspected) exposure to mold (toxic)
CPT/HCPCS: 82533; 82627; 82672; 84144; 84403; 86140; 82626

== ENCOUNTER → 2023-02-04 | Outpatient (CLI) | payer MEDICARE, MEDICAID, SELFPAY | END | disposition home or self-care (01) | PROVIDERS: PCP Nurse Practitioner Family | DX: E24.9 Cushing's syndrome, unspecified (principal) | CPT/HCPCS: 36415; 82533 ==

== ENCOUNTER → 2023-02-05 | Outpatient (CLI) | payer MEDICARE, MEDICAID, SELFPAY ==
[2023-02-10 06:08] LABS: 17-Hydroxyprogesterone 107 ng/dL (27-199)
== END | disposition home or self-care (01) ==
LOC: LAB 12:49
PROVIDERS: PCP Nurse Practitioner Family
DX: E24.9 Cushing's syndrome, unspecified (principal)
CPT/HCPCS: 36415; 82627; 83498; 82626

== ENCOUNTER → 2023-02-25 | Outpatient (CLI) | payer MEDICARE, MEDICAID, SELFPAY ==
[2023-02-25 17:53] LABS: Bacteria 0 SEEN /hpf (None Seen); Mucous, Urine 0 SEEN /hpf (<or=2+); Red Blood Cells-Urine 0 SEEN /hpf (0-5); Squamous Epithelial Cells - UA 0 SEEN /hpf (0-5); White Blood Cells 0 SEEN /hpf (0-5)
[2023-02-25 17:56] LABS: Absolute Lymphocyte Count 2.38 X10^3/uL (0.83-4.51); Absolute Neutrophil Count 3.4 X10^3/uL (2.0-7.7); Basophil# 0.03 X10^3/uL; Basophil% 0.5 % (0-1); Eosinophil# 0.05 X10^3/uL; Eosinophils% 0.8 % (0-5); Hematocrit 44.2 % (40-54); Hemoglobin 14.8 g/dL (13.0-16.5); Lymphocyte # 2.38 X10^3/ul (0.83-4.51); Lymphocyte % 38.1 % (19-41); Mean Corp Hgb Conc 33.5 g/dL (32-36); Mean Corpuscular Hgb 30.1 pg (27.0-32.0); Mean Platelet Vol. 10.7 fl (6.2-12.0); Monocyte# 0.43 X10^3/uL; Monocyte% 6.9 % (0-10); NRBC Flagged by Analyzer 0 % (0-5); Neutrophil # 3.36 X10^3/uL (2.7-7.7); Neutrophil % 53.7 % (47-70); Platelet Count 260 K/mm3 (150-450); RBC Distribution Width CV 11.9 % (11.6-14.6); RBC Distribution Width SD 38.8 fl (35.1-43.9); Red Blood Count 4.91 M/mm3 (4.6-6.2); White Blood Count 6.3 K/mm3 (4.4-11.0)
[2023-02-25 18:00] LABS: Color, Urine Yellow (Yellow); Glucose, Dipstick Normal (Normal); Ketone-Dipstick Negative (Negative); Leukocyte Esterase-Dipstick Negative /ul (Negative); Nitrite-Dipstick Negative (Negative); Occult Blood-Urine Negative /ul (Negative); Protein-Dipstick Negative (Negative); Urine Bilirubin Dipstick Negative (Negative); Urine Clarity Clear (Clear); Urine Urobilinogen Normal (Normal)
[2023-02-25 18:10] LABS: Vitamin D,25 Hydroxy 48.6 ng/mL
[2023-02-25 18:12] LABS: ALB/GLOB Ratio 1.6 RATIO (0.9-2.4); AST(SGOT) 22 U/L (15-37); Alanine Aminotransfer ALT/SGPT 42 U/L (16-61); Albumin, Serum 4.7 g/dL (3.2-5.0); Alkaline Phosphatase 65 U/L (45-117); Anion Gap 9 (5-15); BUN 15 mg/dL (7-18); BUN/Creat Ratio 15.8 RATIO (10-20); Calcium,Total 9.1 mg/dL (8.5-10.1); Chloride 106 mmol/L (98-107); Creatinine, Serum 0.95 mg/dL (0.70-1.30); EST Glomerular Filtration Rate 102 mL/min (>60); Est Glom Filt Rate - Afr Amer 123 mL/min (>60); Ferritin 49 ng/mL (26-388); Glucose 79 mg/dL (74-106); Iron 101 ug/dL (65-175); Potassium 3.9 mmol/L (3.5-5.1); Protein, Total 7.7 g/dL (6.4-8.2); Sodium Level 144 mmol/L (136-145)
== END | disposition home or self-care (01) ==
PROVIDERS: PCP Nurse Practitioner Family; Visit Provider Internal Medicine Critical Care Medicine
DX: E55.9 Vitamin D deficiency, unspecified (principal); R61 Generalized hyperhidrosis; R35.89 Other polyuria; G31.84 Mild cognitive impairment of uncertain or unknown etiology; F41.9 Anxiety disorder, unspecified; M25.569 Pain in unspecified knee; D50.8 Other iron deficiency anemias; M54.59 Other low back pain
CPT/HCPCS: 80053; 81001; 82306; 82728; 83540; 85025

== ENCOUNTER → 2023-07-20 | Outpatient (CLI) | payer MEDICAID, MEDICARE, SELFPAY | END | disposition home or self-care (01) | LOC: LAB 12:21 | PROVIDERS: PCP Nurse Practitioner Family; Referring Provider Nurse Practitioner Family; Visit Provider Nurse Practitioner Family | DX: R19.7 Diarrhea, unspecified (principal) | CPT/HCPCS: 87506 ==

== ENCOUNTER → 2023-07-21 | Outpatient (CLI) | payer MEDICAID, MEDICARE, SELFPAY | END | disposition home or self-care (01) | PROVIDERS: PCP Nurse Practitioner Family; Referring Provider Nurse Practitioner Family; Visit Provider Nurse Practitioner Family | DX: E55.9 Vitamin D deficiency, unspecified (principal); R63.1 Polydipsia; M25.569 Pain in unspecified knee; A69.20 Lyme disease, unspecified; F41.9 Anxiety disorder, unspecified; B60.00 Babesiosis, unspecified; R29.90 Unspecified symptoms and signs involving the nervous system; G04.90 Encephalitis and encephalomyelitis, unspecified; Z77.120 Contact with and (suspected) exposure to mold (toxic) | CPT/HCPCS: 36415 ==

== ENCOUNTER → 2024-11-29 | Outpatient (CLI) | payer MEDICARE, MEDICAID, SELFPAY | END | disposition home or self-care (01) | LOC: LAB.FUTURE 01-17 14:50 | DX: Z51.81 Encounter for therapeutic drug level monitoring (principal); B96.89 Other specified bacterial agents as the cause of diseases classified elsewhere; D74.9 Methemoglobinemia, unspecified | CPT/HCPCS: 36415 ==